=== PATIENT | female | born 1940 | race Caucasian/White ===

== ENCOUNTER → 2017-07-09 | Outpatient (CLI) | payer MEDICARE | END | disposition home or self-care (01) | LOC: GMAJ 16:41 | PROVIDERS: ATTEND Family Medicine | DX: N30.00 Acute cystitis without hematuria (principal) ==

== ENCOUNTER → 2017-08-22 | Outpatient (CLI) | payer MEDICARE | LOC: GMAJ 14:34 | PROVIDERS: ATTEND Family Medicine | DX: N30.00 Acute cystitis without hematuria (principal); E11.9 Type 2 diabetes mellitus without complications; E78.00 Pure hypercholesterolemia, unspecified; I10 Essential (primary) hypertension ==

== ENCOUNTER → 2017-09-05 | Outpatient (CLI) | payer MEDICARE | LOC: GMA 14:08 | PROVIDERS: ATTEND Physician Assistant | DX: N30.00 Acute cystitis without hematuria (principal) ==

== ENCOUNTER → 2017-11-04 | Outpatient (CLI) | payer MEDICARE | LOC: GMAJS 11:15 | PROVIDERS: ATTEND Physician Assistant | DX: N30.00 Acute cystitis without hematuria (principal) ==

== ENCOUNTER → 2018-02-20 | Outpatient (CLI) | payer MEDICARE | LOC: GMAJ 10:43 | PROVIDERS: ATTEND Family Medicine | DX: N30.00 Acute cystitis without hematuria (principal) ==

== ENCOUNTER 2018-05-19 21:13 | Emergency (ER) | payer MEDICARE ==
--- NOTE | 2018-05-19 22:08 | ED.PDOC ---
History of Present Illness - General Chief Complaint: Fever Stated Complaint: fever, generalized weakness, SOB Time Seen by Provider: 05/19/18 21:47 Source: patient, family Exam Limitations: no limitations - History of Present Illness Initial Comments: Patient presents with a fever since this morning. She has not eaten all day. She started having loose bowel movements last night and has had them all day today. No hematochezia. Denies abdominal pain/ST/N/V. She is not sure what surgeries that she has had. Has a mild dry cough. No other complaints. Timing/Duration: 24 hours Severity: moderate Improving Factors: nothing Worsening Factors: nothing Associated Symptoms: other - see hpi Allergies/Adverse Reactions: Allergies Metformin Adverse Reaction (Verified 06/22/16 11:57) Diarrhea Home Medications: Ambulatory Orders Aspirin [Aspirin Adult Low Dose] 81 mg PO BEDTIME 05/15/16 Atorvastatin Calcium [Lipitor] 40 mg PO BEDTIME 05/15/16 Carvedilol 6.25 mg PO BID 05/15/16 Gabapentin 300 mg PO BID 05/15/16 Insulin Detemir [Levemir] 13 units SUBCU BEDTIME 05/15/16 Multiple Vitamins W/ Minerals [Renaplex-D] 1 tab PO DAILY 05/15/16 Sucroferric Oxyhydroxide [Velphoro] 250 mg PO .TIDAC 05/15/16 amLODIPine BESYLATE [Norvasc] 5 mg PO DAILY 05/15/16 Cefdinir [Omnicef] 300 mg PO DAILY #6 cap 05/20/18 Review of Systems - Review of Systems Constitutional: States: fever EENTM: States: no symptoms reported Respiratory: States: see HPI Cardiology: States: no symptoms reported Gastrointestinal/Abdominal: States: see HPI Genitourinary: States: no symptoms reported Musculoskeletal: States: no symptoms reported Skin: States: no symptoms reported Neurological: States: no symptoms reported Endocrine: States: no symptoms reported Hematologic/Lymphatic: States: no symptoms reported Past Medical History (General) - Patient Medical History Hx Seizures: No Hx Stroke: No Hx Dementia: No Hx Asthma: No Hx of COPD: No Hx Cardiac Disorders: Yes - [place] Hx Congestive Heart Failure: No Hx Pacemaker: No Hx Hypertension: Yes Hx Thyroid Disease: Yes - partial thyroidectomy Hx Diabetes: Yes Hx Gastroesophageal Reflux: No Hx Renal Disease: Yes - Dialysis Hx Cancer: No Hx of HIV: No Hx Hepatitis C: No Hx MRSA: No - Vaccination History Hx Influenza Vaccination: Yes - 2015 Hx Pneumococcal Vaccination: Yes - 2015 - Social History Hx Tobacco Use: Yes - Quit 1966 Family Medical History - Family History Mother Family History: Unknown Living Status: Unknown Hx Family;Other: COPD Physical Exam - Physical Exam General Appearance: Alert Eye Exam: bilateral normal Ears, Nose, Throat: normal ENT inspection, normal pharynx Neck: non-tender, supple Respiratory: lungs clear, normal breath sounds Cardiovascular/Chest: normal peripheral pulses, regular rate, rhythm, no edema Gastrointestinal/Abdominal: normal bowel sounds, non tender, soft Back Exam: normal inspection, no CVA tenderness Extremity: normal range of motion, non-tender, normal inspection 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, no motor/sensory deficits, alert, normal mood/affect, oriented x 3 Skin Exam: normal color Lymphatic: no adenopathy Progress - Progress Progress: 05/20/18 00:42 Laboratory Tests 05/19/18 05/19/18 05/19/18 21:31 22:10 22:20 WBC 10.2 RBC 3.31 L Hgb 10.6 L Hct 32.7 L MCV 98.9 MCH 32.0 H MCHC 32.5 L RDW 16.7 H Plt Count 136 MPV 8.2 Absolute Neuts (auto) 8.90 H Absolute Lymphs (auto) 0.60 L Absolute Monos (auto) 0.60 Absolute Eos (auto) 0.00 Absolute Basos (auto) 0.10 Neutrophils % 87.1 H Lymphocytes % 5.9 L Monocytes % 5.5 Eosinophils % 0.3 L Basophils % 1.2 Sodium Potassium Chloride Carbon Dioxide Anion Gap BUN Creatinine BUN/Creatinine Ratio POC Glucose 149 H Random Glucose Serum Osmolality Calcium Total Bilirubin AST ALT Alkaline Phosphatase Serum Total Protein Albumin Globulin Albumin/Globulin Ratio Urine Color Urine Appearance Urine pH Ur Specific [place]ow Urine Protein Urine Glucose (UA) Urine Ketones Urine Blood Urine Nitrite Urine Bilirubin Urine Urobilinogen Ur Leukocyte Esterase Urine RBC Urine WBC Ur Epithelial Cells Urine Bacteria Group A Strep Rapid Negative 05/19/18 05/19/18 22:20 23:44 WBC RBC Hgb Hct MCV MCH MCHC RDW Plt Count MPV Absolute Neuts (auto) Absolute Lymphs (auto) Absolute Monos (auto) Absolute Eos (auto) Absolute Basos (auto) Neutrophils % Lymphocytes % Monocytes % Eosinophils % Basophils % Sodium 139 Potassium 4.9 Chloride 105 Carbon Dioxide 24 Anion Gap 14.9 BUN 73 H Creatinine 6.88 H* BUN/Creatinine Ratio 10.6 POC Glucose Random Glucose 156 H Serum Osmolality 302.3 H Calcium 9.3 Total Bilirubin 0.6 AST 25 ALT 17 Alkaline Phosphatase 54 Serum Total Protein 7.2 Albumin 3.6 Globulin 3.6 H Albumin/Globulin Ratio 1.0 L Urine Color Yellow Urine Appearance Clear Urine pH 8.5 H Ur Specific [place]ow 1.020 Urine Protein 100 H Urine Glucose (UA) Negative Urine Ketones Negative Urine Blood Trace-intact H Urine Nitrite Negative Urine Bilirubin Negative Urine Urobilinogen 0.2 Ur Leukocyte Esterase Small H Urine RBC 5-10 H Urine WBC 10-20 H Ur Epithelial Cells 5-10 Urine Bacteria 1+ Group A Strep Rapid Mild UTI. CT abdomen/pelvis did not show a convincing etiology of the fever or diarrhea. It is likely that the patient has infections diarrhea with an incidental mild UTI. Given Rocephin 1 gram IV x one in the E.D. and RX for Omnicef 300 mg po q24 to be taken after dialysis for a total of 7 days. 05/20/18 00:43 E.R. warnings given. Care instructions given. Questions were elicited and answered. The patient voiced understanding and agreement with the plan. Departure - Departure Clinical Impression: Diarrhea, Urinary tract infection Disposition: Discharge to Home or Self Care Condition: Good Departure Forms: ED Discharge - Pt. Copy, Patient Portal Self Enrollment Instructions: DI for Fever (Symptom) -- Adult Diet: resume usual diet, other - Increase oral fluids while having the diarrhea. Activity: increase activity as tolerated Referrals: Pedro Luis Fatima MD [Primary Care Provider] - 1-2 Weeks Prescriptions: Cefdinir [Omnicef] 300 mg PO DAILY #6 cap Home Medications: Ambulatory Orders Aspirin [Aspirin Adult Low Dose] 81 mg PO BEDTIME 05/15/16 Atorvastatin Calcium [Lipitor] 40 mg PO BEDTIME 05/15/16 Carvedilol 6.25 mg PO BID 05/15/16 Gabapentin 300 mg PO BID 05/15/16 Insulin Detemir [Levemir] 13 units SUBCU BEDTIME 05/15/16 Multiple Vitamins W/ Minerals [Renaplex-D] 1 tab PO DAILY 05/15/16 Sucroferric Oxyhydroxide [Velphoro] 250 mg PO .TIDAC 05/15/16 amLODIPine BESYLATE [Norvasc] 5 mg PO DAILY 05/15/16 Cefdinir [Omnicef] 300 mg PO DAILY #6 cap 05/20/18 Additional Instructions: Increase your oral intake of fluids while you are having diarrhea. You may start using Immodium AD as directed on the bottle if you still have diarrhea on Saturday. See your regular doctor if the diarrhea does not clear up in 5 days.
--- NOTE | 2018-05-19 22:37 | RAD ---
EXAM DESCRIPTION: Chest,1 View CLINICAL HISTORY: 78 years Female fever COMPARISON: 05/13/2016 FINDINGS: Cardiac enlargement. Prominent pulmonary arteries. Interstitial markings are prominent which may reflect developing interstitial edema. No lobar consolidation. No pneumothorax. No definite pleural fluid IMPRESSION: Cardiac enlargement prominent main pulmonary artery which is unchanged Interstitial infiltrate. Question fibrosis versus developing edema Electronically signed by: Cynthia Lopes MD 05/19/2018 10:36 PM [employer]
[2018-05-19] MEDS: ACETAMINOPHEN 325 MG TAB PO ONE (23:05)
--- NOTE | 2018-05-19 23:26 | CT ---
NONCONTRAST ABDOMEN AND PELVIC CT EXAMINATION. HISTORY: Fever and diarrhea. COMPARISONS: No comparison abdomen and pelvic CT examinations are available. PROCEDURE: Using helical technique, thin section axial images were performed through the abdomen and pelvis without the administration of intravenous or oral contrast material. FINDINGS: Both kidneys appear small with probable renal cortical thinning. Renal vascular calcifications. Fatty inflammation adjacent to the fluid-filled urinary bladder suspicious for sequela of bladder infection. The adrenal glands, kidneys, renal collecting systems, ureters and urinary bladder are otherwise grossly normal on this noncontrast examination. Mild to moderate sigmoid diverticulosis. No evidence of appendicitis, diverticulitis, inflammatory bowel disease, bowel obstruction, extraluminal bowel gas or retroperitoneal hemorrhage. No ascites, free pelvic fluid or evidence of intra-abdominal abscess on this noncontrast examination. The fluid-filled gallbladder is grossly normal. Metallic artifact in the right upper abdominal quadrant possibly representing a localization coils in the hepatic artery. The liver, spleen, pancreas, stomach and duodenum are otherwise grossly normal on this noncontrast examination. Moderate to severe atherosclerotic calcification in the abdominal aorta and iliac arteries with greatest AP diameter of the infrarenal abdominal aorta measuring 2.1 cm. Sequela of remote hysterectomy. Bones appear normal for age. IMPRESSION: 1. Fatty inflammation adjacent to the fluid-filled urinary bladder suspicious for sequela of bladder infection. 2. Mild to moderate sigmoid colon diverticulosis without evidence of diverticulitis. 3. Ectasia of the infrarenal abdominal aorta with greatest AP diameter equaling 2.1 cm. No imaging follow-up recommended. If clinical concern persists, post intravenous contrast and post oral contrast abdomen and pelvic CT examination should be performed for further evaluation. This exam was performed according to our departmental dose-optimization program, which includes automated exposure control, adjustment of the mA and/or kV according to patient size and/or use of iterative reconstruction technique. Electronically signed by: Tim Hough MD 05/19/2018 11:25 PM COUNTER CONTROL OPERATOR
[2018-05-19] MEDS: SODIUM CHLORIDE 0.9% 1000ML 1,000 ML IVS ONE (23:55)
[2018-05-20] MEDS ORDERED: cefTRIAXone SODIUM 1 GM VIAL ONE (00:34)
[2018-05-20] MEDS ORDERED: SODIUM CHL 0.9% 50ML MIN-BAG+ 50 ML IVPB ONE (00:34)
[2018-05-20] MEDS: cefTRIAXone SODIUM 1 GM in SODIUM CHL 0.9% 50ML MIN-BAG+ 50 ML IVPB ONE (00:37)
[2018-05-20 01:28] VITALS: BP 163/71; TEMP 99.4; O2SAT 96
== END 2018-05-20 01:29 | disposition home or self-care (01) ==
LOC: ER 21:13
DX: N39.0 Urinary tract infection, site not specified (principal); R19.7 Diarrhea, unspecified; R05 Cough; I25.2 Old myocardial infarction; I12.0 Hypertensive chronic kidney disease with stage 5 chronic kidney disease or end stage renal disease; E11.22 Type 2 diabetes mellitus with diabetic chronic kidney disease; N18.6 End stage renal disease; E89.0 Postprocedural hypothyroidism; Z99.2 Dependence on renal dialysis; Z87.891 Personal history of nicotine dependence; Z79.82 Long term (current) use of aspirin; Z79.4 Long term (current) use of insulin; Z79.899 Other long term (current) drug therapy; Z88.8 Allergy status to other drugs, medicaments and biological substances
CPT/HCPCS: 36416; 71045; 74176; 80053; 81001; 82948; 85025; 87070; 87086; 87502; 87880; J0696; J7030; J7050

== ENCOUNTER → 2018-05-23 | Outpatient (CLI) | payer MEDICARE | LOC: YCHH 09:16 | PROVIDERS: ATTEND Family Medicine | DX: N18.9 Chronic kidney disease, unspecified (principal); E11.9 Type 2 diabetes mellitus without complications; D64.9 Anemia, unspecified; E78.5 Hyperlipidemia, unspecified ==

== ENCOUNTER 2018-05-28 07:46 | Emergency (ER) | payer MEDICARE ==
[2018-05-28 07:57] VITALS: TEMP 97.6
--- NOTE | 2018-05-28 08:04 | ED.PDOC ---
History of Present Illness - General Chief Complaint: General Stated Complaint: shortness of breath Time Seen by Provider: 05/28/18 08:00 Source: patient - History of Present Illness Timing/Duration: other - 3 DAYS Improving Factors: nothing Worsening Factors: movement, other - EXCERTION Associated Symptoms: malaise, shortness of breath Allergies/Adverse Reactions: Allergies Metformin Adverse Reaction (Verified 06/22/16 11:57) Diarrhea Home Medications: Ambulatory Orders Gabapentin 300 mg PO DAILY 05/15/16 Multiple Vitamins W/ Minerals [Renaplex-D] 1 tab PO DAILY 05/15/16 Sucroferric Oxyhydroxide [Velphoro] 250 mg PO .TIDAC 05/15/16 amLODIPine BESYLATE [Norvasc] 5 mg PO DAILY 05/15/16 Gabapentin 600 mg PO BEDTIME 05/28/18 Insulin Aspart [Novolog Flexpen] 100 unit SC .BEDTIMESLIDINGSCALE 05/28/18 Metoprolol Succinate [Metoprolol Succinate ER] 25 mg PO DAILY 05/28/18 Review of Systems - Review of Systems Constitutional: States: no symptoms reported EENTM: States: no symptoms reported Respiratory: States: short of breath Cardiology: States: no symptoms reported Gastrointestinal/Abdominal: States: no symptoms reported Genitourinary: States: no symptoms reported Musculoskeletal: States: no symptoms reported Skin: States: no symptoms reported Neurological: States: no symptoms reported Endocrine: States: no symptoms reported Hematologic/Lymphatic: States: no symptoms reported Past Medical History (General) - Patient Medical History Hx Seizures: No Hx Stroke: No Hx Dementia: No Hx Asthma: No Hx of COPD: No Hx Cardiac Disorders: Yes - [place] Hx Congestive Heart Failure: No Hx Pacemaker: No Hx Hypertension: Yes Hx Thyroid Disease: Yes - partial thyroidectomy Hx Diabetes: Yes Hx Gastroesophageal Reflux: No Hx Renal Disease: Yes - Dialysis Hx Cancer: No Hx of HIV: No Hx Hepatitis C: No Hx MRSA: No Surgical History: cholecystectomy - Vaccination History Hx Influenza Vaccination: Yes Hx Pneumococcal Vaccination: Yes - 2015 - Social History Hx Tobacco Use: No - Female History Patient is a Female of Child Bearing Age (10 -59 yrs old): Yes Family Medical History - Family History Mother Family History: Unknown Living Status: Unknown Hx Family;Other: COPD Physical Exam - Physical Exam General Appearance: No apparent distress, Well Developed, Well Groomed, Well Hydrated Ears, Nose, Throat: hearing grossly normal, normal ENT inspection, normal pharynx Neck: non-tender, full range of motion, supple Respiratory: chest non-tender, crackles Cardiovascular/Chest: normal peripheral pulses, regular rate, rhythm Gastrointestinal/Abdominal: normal bowel sounds, non tender, no organomegaly, no pulsatile mass Back Exam: normal inspection Extremity: normal range of motion, non-tender, normal inspection, no pedal edema Skin Exam: normal color Lymphatic: no adenopathy Progress - Progress Progress: 05/28/18 09:[address] GROSS-TO DIALYSIS - Results/Orders Results/Orders: cxr: PULMONARY EDEMA 05/28/18 08:49 UA [URINALYSIS] Stat Laboratory Results WBC 7.2 K/mm3 (4.8-10.8) 05/28/18 08:11 RBC 3.41 M/mm3 (4.20-5.40) L 05/28/18 08:11 Hgb 10.9 gm/dL (12.0-16.0) L 05/28/18 08:11 Hct 33.8 % (36.0-47.0) L 05/28/18 08:11 MCV 99.1 fl (81.0-99.0) H 05/28/18 08:11 MCH 31.9 pg (27.0-31.0) H 05/28/18 08:11 MCHC 32.2 g/dL (33.0-37.0) L 05/28/18 08:11 RDW 17.0 % (11.5-14.5) H 05/28/18 08:11 Plt Count 150 K/mm3 (130-400) 05/28/18 08:11 MPV 8.0 fl (7.40-10.4) 05/28/18 08:11 Absolute Neuts (auto) 5.20 K/uL (1.8-6.8) 05/28/18 08:11 Absolute Lymphs (auto) 1.20 K/uL (1.0-3.4) 05/28/18 08:11 Absolute Monos (auto) 0.50 K/uL (0.2-0.8) 05/28/18 08:11 Absolute Eos (auto) 0.20 K/uL (0.0-0.4) 05/28/18 08:11 Absolute Basos (auto) 0.10 K/uL (0.0-0.1) 05/28/18 08:11 Neutrophils % 71.8 % (42.0-78.0) 05/28/18 08:11 Lymphocytes % 17.1 % (20.0-50.0) L 05/28/18 08:11 Monocytes % 7.4 % (2.0-9.0) 05/28/18 08:11 Eosinophils % 3.0 % (1.0-5.0) 05/28/18 08:11 Basophils % 0.7 % (0.0-2.0) 05/28/18 08:11 Sodium 137 mmol/L (135-145) 05/28/18 08:11 Potassium 4.5 mmol/L (3.6-5.0) 05/28/18 08:11 Chloride 98 mmol/L (101-111) L 05/28/18 08:11 Carbon Dioxide 27 mmol/L (21-31) 05/28/18 08:11 Anion Gap 16.5 (12-18) 05/28/18 08:11 BUN 57 mg/dL (7-18) H 05/28/18 08:11 Creatinine 4.97 mg/dL (0.6-1.3) H 05/28/18 08:11 BUN/Creatinine Ratio 11.5 (10-20) 05/28/18 08:11 Random Glucose 116 mg/dL (70-105) H 05/28/18 08:11 Serum Osmolality 290.6 mOsm/L (275-295) 05/28/18 08:11 Calcium 9.2 mg/dL (8.4-10.2) 05/28/18 08:11 Total Bilirubin 0.7 mg/dL (0.2-1.0) 05/28/18 08:11 AST 21 IU/L (10-42) 05/28/18 08:11 ALT 19 IU/L (10-60) 05/28/18 08:11 Alkaline Phosphatase 52 IU/L (42-121) 05/28/18 08:11 Serum Total Protein 7.1 gm/dL (6.4-8.2) 05/28/18 08:11 Albumin 3.4 g/dl (3.2-5.5) 05/28/18 08:11 Globulin 3.7 gm/dL (2.3-3.5) H 05/28/18 08:11 Albumin/Globulin Ratio 0.9 (1.1-1.9) L 05/28/18 08:11 Departure - Departure Clinical Impression: End stage renal disease on dialysis Congestive heart failure (CHF) Qualifiers: Heart failure type: diastolic Heart failure chronicity: acute on chronic Qualified Code(s): I50.33 - Acute on chronic diastolic (congestive) heart failure Time of Disposition: :16 Disposition: Discharge to Home or Self Care Condition: Fair Departure Forms: ED Discharge - Pt. Copy, Patient Portal Self Enrollment Diet: resume usual diet Activity: increase activity as tolerated Referrals: Pedro Luis Fatima MD [Primary Care Provider] - 1-2 Weeks Home Medications: Ambulatory Orders Gabapentin 300 mg PO DAILY 05/15/16 Multiple Vitamins W/ Minerals [Renaplex-D] 1 tab PO DAILY 05/15/16 Sucroferric Oxyhydroxide [Velphoro] 250 mg PO .TIDAC 05/15/16 amLODIPine BESYLATE [Norvasc] 5 mg PO DAILY 05/15/16 Gabapentin 600 mg PO BEDTIME 05/28/18 Insulin Aspart [Novolog Flexpen] 100 unit SC .BEDTIMESLIDINGSCALE 05/28/18 Metoprolol Succinate [Metoprolol Succinate ER] 25 mg PO DAILY 05/28/18 Comments: TO DIALYSIS
--- NOTE | 2018-05-28 08:18 | RAD ---
EXAM DESCRIPTION: Chest,1 View CLINICAL HISTORY: 78 years Female, SOB COMPARISON: Chest radiograph 05/19/2018 TECHNIQUE: Single frontal view of the chest. IMPRESSION: Cardiac silhouette is stably enlarged. Worsening pulmonary edema versus multifocal pneumonia. New moderate bilateral pleural effusions. No pneumothorax. Thoracic spondylosis. Bones are diffusely demineralized. Consider DEXA scan to assess for fracture risk is not performed. Electronically signed by: Kleber Garg MD 05/28/2018 8:17 AM [facility]
[2018-05-28] MEDS ORDERED: FUROSEMIDE INJ 40 MG/4 ML VIAL IV ONE (08:46)
[2018-05-28 09:39] VITALS: BP 187/83; O2SAT 93
== END 2018-05-28 09:41 | disposition home or self-care (01) ==
LOC: ER 07:46
DX: I50.33 Acute on chronic diastolic (congestive) heart failure (principal); N18.6 End stage renal disease; I25.2 Old myocardial infarction; I13.2 Hypertensive heart and chronic kidney disease with heart failure and with stage 5 chronic kidney disease, or end stage renal disease; E11.22 Type 2 diabetes mellitus with diabetic chronic kidney disease; E89.0 Postprocedural hypothyroidism; Z99.2 Dependence on renal dialysis; Z79.4 Long term (current) use of insulin; Z79.899 Other long term (current) drug therapy; Z88.8 Allergy status to other drugs, medicaments and biological substances
CPT/HCPCS: 36415; 71045; 80053; 81001; 85025; J1940

== ENCOUNTER 2018-06-03 17:52 | Emergency (ER) | payer MEDICARE ==
[2018-06-03] MEDS ORDERED: SODIUM CHLORIDE 0.9% (FLUSH) 10 ML SYG IV PRN (18:21)
--- NOTE | 2018-06-03 18:59 | ED.PDOC ---
History of Present Illness - General Source: patient, family Exam Limitations: clinical condition - History of Present Illness Initial Comments: PT PRESENTS TO THE ED WITH AMS, FEVER, AND GENERALIZED WEAKNESS THAT BEGAN JUST PRIOR TO ARRIVAL TODAY. PT WAS IN HER NORMAL STATE OF HEALTH UNTIL SHE BEGAN TO HAVE FEVER, CHILLS, AND CONFUSION. PT WAS RECENTLY TREATED FOR A UTI WHICH HAD RESOLVED. PT WAS SEEN BY HER PCP EARLIER TODAY AND WAS ASYMPTOMATIC AT THE TIME. ROS AND HPI LIMITED DUE TO PTS MENTAL STATUS. Timing/Duration: 1-3 hours Severity: moderate Associated Symptoms: weakness <Grey Farris - Last Filed: 06/03/18 18:57> <Patric Zaman - Last Filed: 06/03/18 19:48> - General Chief Complaint: Fever Stated Complaint: FEVER Time Seen by Provider: 06/03/18 18:11 - History of Present Illness Allergies/Adverse Reactions: Allergies Metformin Adverse Reaction (Verified 06/22/16 11:57) Diarrhea Home Medications: Ambulatory Orders Gabapentin 300 mg PO DAILY 05/15/16 Multiple Vitamins W/ Minerals [Renaplex-D] 1 tab PO DAILY 05/15/16 Sucroferric Oxyhydroxide [Velphoro] 250 mg PO .TIDAC 05/15/16 amLODIPine BESYLATE [Norvasc] 5 mg PO DAILY 05/15/16 Gabapentin 600 mg PO BEDTIME 05/28/18 Insulin Aspart [Novolog Flexpen] 100 unit SC .BEDTIMESLIDINGSCALE 05/28/18 Metoprolol Succinate [Metoprolol Succinate ER] 25 mg PO DAILY 05/28/18 Review of Systems - Review of Systems Constitutional: States: chills, fever EENTM: Denies: nose congestion, throat pain Respiratory: States: short of breath. Denies: cough Cardiology: Denies: chest pain, palpitations Gastrointestinal/Abdominal: Denies: nausea, vomiting Genitourinary: Denies: dysuria, frequency Musculoskeletal: Denies: back pain, joint pain Skin: States: see HPI Neurological: States: see HPI <Grey Farris - Last Filed: 06/03/18 18:57> Past Medical History (General) - Patient Medical History Hx Seizures: No Hx Stroke: No Hx Dementia: No Hx Asthma: No Hx of COPD: No Hx Cardiac Disorders: Yes - [place] Hx Congestive Heart Failure: No Hx Pacemaker: No Hx Hypertension: Yes Hx Thyroid Disease: Yes - partial thyroidectomy Hx Diabetes: Yes Hx Gastroesophageal Reflux: No Hx Renal Disease: Yes - Dialysis Hx Cancer: No Hx of HIV: No Hx Hepatitis C: No Hx MRSA: No - Vaccination History Hx Influenza Vaccination: Yes Hx Pneumococcal Vaccination: Yes - 2016 - Social History Hx Tobacco Use: No <Grey Farris - Last Filed: 06/03/18 18:57> Family Medical History - Family History Mother Family History: Unknown Living Status: Unknown Hx Family;Other: COPD <WalkerGrey - Last Filed: 06/03/18 18:57> Physical Exam - Physical Exam General Appearance: Alert, Frail, Ill Appearing, Well Groomed, Well Hydrated, Other - CONFUSED, WEAK Eye Exam: bilateral normal Ears, Nose, Throat: hearing grossly normal Neck: normal inspection Respiratory: lungs clear, normal breath sounds, no respiratory distress Cardiovascular/Chest: regular rate, rhythm, no murmur Gastrointestinal/Abdominal: non tender, soft Extremity: non-tender, no pedal edema Neurologic: alert, other - CONFUSED AT TIMES Skin Exam: warm/dry, pallor <Grey Farris - Last Filed: 06/03/18 18:57> Progress - Progress Progress: 06/03/18 19:38 ASSUMED CARE OF PT. HAVE REVIEWED CHART, LAB, RADIOLOGY, SEEN AND EXAMINED PT. AGREE WITH PREVIOUS DOCUMENTATION. LL RALES, SKIN HOT AND DRY. - EKG/XRAY/CT EKG: Sinus - RATE 90 AXIS NL, , nonspecific ST T wave Chg - NAIP, Unchanged from - 05/15/16 <Patric Zaman - Last Filed: 06/03/18 19:48> Departure <Grey Farris - Last Filed: 06/03/18 18:57> - Departure ICD-10 Supporting Text: PARTIALLY TREATED UTI Time of Disposition: 19:48 <Patric Zaman - Last Filed: 06/03/18 19:48> - Departure Clinical Impression: Pneumonia Qualifiers: Pneumonia type: due to unspecified organism Laterality: left Lung location: lower lobe of lung Qualified Code(s): J18.1 - Lobar pneumonia, unspecified organism UTI (urinary tract infection) Qualifiers: Urinary tract infection type: site unspecified Hematuria presence: without hematuria Qualified Code(s): N39.0 - Urinary tract infection, site not specified Chronic kidney disease (CKD) Qualifiers: Chronic kidney disease stage: on chronic dialysis Qualified Code(s): N18.6 - End stage renal disease; Z99.2 - Dependence on renal dialysis; Z99.2 - Dependence on renal dialysis; Z99.2 - Dependence on renal dialysis; Z99.2 - Dependence on renal dialysis Disposition: Transfer to Hospital Departure Forms: ED Discharge - Pt. Copy, Patient Portal Self Enrollment Referrals: Pedro Luis Fatima MD [Primary Care Provider] - 1-2 Weeks Home Medications: Ambulatory Orders Gabapentin 300 mg PO DAILY 05/15/16 Multiple Vitamins W/ Minerals [Renaplex-D] 1 tab PO DAILY 05/15/16 Sucroferric Oxyhydroxide [Velphoro] 250 mg PO .TIDAC 05/15/16 amLODIPine BESYLATE [Norvasc] 5 mg PO DAILY 05/15/16 Gabapentin 600 mg PO BEDTIME 05/28/18 Insulin Aspart [Novolog Flexpen] 100 unit SC .BEDTIMESLIDINGSCALE 05/28/18 Metoprolol Succinate [Metoprolol Succinate ER] 25 mg PO DAILY 05/28/18 Transfer to Outside Facility - Transfer Information Accepting Provider:: D/W DR TOMPKINS WILL ACCEPT PT IN TRANSFER 1942 Accepting Facility: [facility] Reason for Transfer: specialized care not available <Patric Zaman - Last Filed: 06/03/18 19:48>
--- NOTE | 2018-06-03 19:00 | RAD ---
EXAM DESCRIPTION: Chest,1 View CLINICAL HISTORY: 78 years Female FEVER COMPARISON: 05/28/2018. FINDINGS: There is cardiomegaly again visualized. Atherosclerotic changes in the thoracic aorta. There is opacity at the left lung base suggesting a left pleural effusion with associated atelectasis or infiltrate. The changes from vascular congestion and interstitial edema visualized on the previous study appear improved. IMPRESSION: Cardiomegaly with improvement in pulmonary vascular congestion and interstitial edema compared to the previous study. Left pleural effusion with opacity at the left lung base which could be from atelectasis or pneumonia. Electronically signed by: Naman Lopes MD 06/03/2018 6:58 PM AIRCRAFT TIME CLERK
[2018-06-03] MEDS ORDERED: AZITHROMYCIN IV 500 MG in SODIUM CHLORIDE 0.9% 250ML 250 ML IVPB ONE (19:04)
[2018-06-03] MEDS ORDERED: ACETAMINOPHEN 500 MG TAB PO ONE (19:04)
[2018-06-03] MEDS ORDERED: cefTRIAXone SODIUM 1 GM in SODIUM CHL 0.9% 50ML MIN-BAG+ 50 ML IVPB ONE (19:04)
[2018-06-03] MEDS ORDERED: AZITHROMYCIN IV 500 MG VIAL IVPB ONE (19:08)
[2018-06-03] MEDS ORDERED: SODIUM CHL 0.9% 50ML MIN-BAG+ 50 ML IVPB ONE (19:09)
[2018-06-03] MEDS ORDERED: SODIUM CHLORIDE 0.9% 250ML 250 ML ONE (19:09)
[2018-06-03] MEDS ORDERED: cefTRIAXone SODIUM 1 GM VIAL ONE (19:09)
[2018-06-03 20:27] VITALS: BP 132/56; TEMP 101.7; O2SAT 97
== END 2018-06-03 20:40 | disposition short-term general hospital (02) ==
LOC: ER 17:52
DX: J18.9 Pneumonia, unspecified organism (principal); N39.0 Urinary tract infection, site not specified; N18.6 End stage renal disease; R41.82 Altered mental status, unspecified; E11.22 Type 2 diabetes mellitus with diabetic chronic kidney disease; I12.0 Hypertensive chronic kidney disease with stage 5 chronic kidney disease or end stage renal disease; I25.2 Old myocardial infarction; E89.0 Postprocedural hypothyroidism; Z99.2 Dependence on renal dialysis; Z79.4 Long term (current) use of insulin; Z79.899 Other long term (current) drug therapy; Z88.8 Allergy status to other drugs, medicaments and biological substances
CPT/HCPCS: 36415; 71045; 80053; 82550; 82553; 83605; 84484; 85025; 85610; 85730; 87040; 93005; J0456; J0696; J7050

== ENCOUNTER 2018-07-01 14:06 | Emergency (ER) | payer MEDICARE ==
[2018-07-01] MEDS ORDERED: SODIUM CHLORIDE 0.9% (FLUSH) 10 ML SYG IV PRN (14:39)
--- NOTE | 2018-07-01 14:45 | ED.PDOC ---
History of Present Illness - General Chief Complaint: Respiratory Problem Time Seen by Provider: 07/01/18 14:21 Source: patient, family Exam Limitations: no limitations - History of Present Illness Initial Comments: APPROX 1 MO AGO, DX'D WITH PNE AND UTI. WAS IN [facility] FOR 2 WKS FOR TX. THEN DC'D TO [facility] FOR RECOVERY. PT AND FAMILY STATE SHE HASN'T REGAINED HER STRENGTH AND STILL IS HAVING SOB. PT STATES SHE WAS AT P.T. TODAY, DEVELOPED SOB AND MILD CP IN L LOWER CHEST. C/O FATIGUE, SOB. PT'S BEEN ON 02 SINCE HOSPITALIZATION AND HN, BUT WASN'T ON 02 PRIOR. SATS IN ER TODAY 90% ON 2LNC. PMH: DM, CRF ON DIALYSIS X 7 YRS, CHF, H/O STROKE. HAD DIALYSIS YESTERDAY (M, W, F) Timing/Duration: constant, getting worse Severity: moderate Activities at Onset: activity Possible Cause: other - RECENT PNE Improving Factors: nothing Worsening Factors: movement Associated Symptoms: chest pain, cough, weakness Respiratory Risk Factors: other - RECENT PNE Allergies/Adverse Reactions: Allergies Metformin Adverse Reaction (Verified 06/22/16 11:57) Diarrhea Home Medications: Ambulatory Orders Gabapentin 300 mg PO DAILY 05/15/16 Multiple Vitamins W/ Minerals [Renaplex-D] 1 tab PO BEDTIME 05/15/16 Sucroferric Oxyhydroxide [Velphoro] 1,500 mg PO .TIDPC 05/15/16 amLODIPine BESYLATE [Norvasc] 5 mg PO DAILY 05/15/16 Gabapentin 600 mg PO BEDTIME 05/28/18 Metoprolol Succinate [Metoprolol Succinate ER] 100 mg PO BID 05/28/18 Ampicillin 500 mg PO QID 07/01/18 Apixaban [Eliquis] 5 mg PO BID 07/01/18 Atorvastatin Calcium 40 mg PO BEDTIME 07/01/18 Balsam [place] Oil [Venelex] 1 oin EX DAILY 07/01/18 Calcium Acetate (Phosphate Bin [Calcium Acetate] 2 tablet PO .TIDPC 07/01/18 Cholecalciferol [D 2000] 2,000 unit PO DAILY 07/01/18 Insulin Glargine [Lantus Solostar] 13 unit SC BEDTIME 07/01/18 Lvfrylwf-Bvaijzzmqu-Wrkobcjko [Neosporin] 1 applic TOP BID 07/01/18 Sucroferric Oxyhydroxide [Velphoro] 500 mg PO AC 07/01/18 Tramadol HCl [Ultram] 50 mg PO Q4HR PRN 07/01/18 Review of Systems - Review of Systems Constitutional: States: weakness. Denies: chills, fever EENTM: States: no symptoms reported Respiratory: States: cough, short of breath. Denies: orthopnea, stridor, wheezing Cardiology: States: chest pain. Denies: palpitations Gastrointestinal/Abdominal: States: no symptoms reported Genitourinary: States: no symptoms reported Musculoskeletal: States: no symptoms reported Skin: States: no symptoms reported Neurological: States: no symptoms reported Endocrine: States: no symptoms reported Hematologic/Lymphatic: States: no symptoms reported All other Systems: Reviewed and Negative Past Medical History (General) - Patient Medical History Hx Seizures: No Hx Stroke: No Hx Dementia: No Hx Asthma: No Hx of COPD: No Hx Cardiac Disorders: Yes - IN Hx Congestive Heart Failure: No Hx Pacemaker: No Hx Hypertension: Yes Hx Thyroid Disease: Yes - partial thyroidectomy Hx Diabetes: Yes Hx Gastroesophageal Reflux: No Hx Renal Disease: Yes - Dialysis Hx Cancer: No Hx of HIV: No Hx Hepatitis C: No Hx MRSA: No - Vaccination History Hx Influenza Vaccination: Yes Hx Pneumococcal Vaccination: Yes - 2016 - Social History Hx Tobacco Use: No Family Medical History - Family History Mother Family History: Unknown Living Status: Unknown Hx Family;Other: COPD Physical Exam - Physical Exam General Appearance: Alert, Well Nourished Eyes, Ears, Nose, Throat Exam: PERRL/EOMI, normal ENT inspection Neck: non-tender, supple Respiratory: chest non-tender, lungs clear, normal breath sounds, no respiratory distress, no accessory muscle use Cardiovascular/Chest: normal peripheral pulses, regular rate, rhythm, no murmur Peripheral Pulses: radial,right: 2+, radial,left: 2+ Gastrointestinal/Abdominal: normal bowel sounds, non tender, soft Rectal Exam: deferred Extremity: non-tender, pedal edema - CHRONIC, PER PT. 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 SHE STATES SHE STILL VOIDS SO WE ARE GIVING HER SOMETHING TO DRINK TO HELP HER URINATE. 07/01/18 17:40 86% ON RA. 02 90 - 93% ON 2L NC. CRF PER CXR, BNP, JVD, AND BLE EDEMA. PNE PER XCR HGB 7.7 (BASELINE 9 - 11). ELEV RDW. ANEMIA OF CHRONIC DZ. NA 131. BUN AND CR ELEV PER ARF DIALYSIS. BNP 2670 (BASELINE 1200 - 1500) CXR CARDIOMEGALY, ELEV L PLEURAL EFF AND PULM EDEMA, CHF VS POSSIBLE PNE. EKG, CARD ENZ, AND FLU NEG. COMPLEX DIALYSIS PT M, W, F WITH DR. GR[place] H/O CHF, IDDM, THUS TRANSFERRING TO [facility] FOR HIGHER LEVEL OF CARE. THANK YOU, DR. FINN AND [facility]. 07/01/18 17:46 - EKG/XRAY/CT EKG: Sinus, no ST T wave changes Departure - Departure Clinical Impression: Hypoxia, Cough, End stage renal failure on dialysis, Atypical chest pain, Hyponatremia, Elevated brain natriuretic peptide (BNP) level, Cardiomegaly, Pleural effusion, left, Jugular venous distension, Leg edema Pneumonia Qualifiers: Pneumonia type: due to unspecified organism Laterality: left Lung location: lower lobe of lung Qualified Code(s): J18.1 - Lobar pneumonia, unspecified organism CHF exacerbation Qualifiers: Heart failure type: unspecified Qualified Code(s): I50.9 - Heart failure, unspecified Dyspnea Qualifiers: Dyspnea type: shortness of breath Qualified Code(s): R06.02 - Shortness of breath; R06.00 - Dyspnea, unspecified; R06.01 - Orthopnea Fatigue Qualifiers: Fatigue type: unspecified Qualified Code(s): R53.83 - Other fatigue Anemia Qualifiers: Anemia type: due to chronic kidney disease Chronic kidney disease stage: on chronic dialysis Qualified Code(s): N18.6 - End stage renal disease; D63.1 - Anemia in chronic kidney disease; Z99.2 - Dependence on renal dialysis Pulmonary edema Qualifiers: Chronicity: acute Qualified Code(s): J81.0 - Acute pulmonary edema Disposition: Transfer to Hospital Condition: Poor Departure Forms: ED Discharge - Pt. Copy, Patient Portal Self Enrollment Referrals: Pedro Luis Fatima MD [Primary Care Provider] - 1-2 Weeks Home Medications: Ambulatory Orders Gabapentin 300 mg PO DAILY 05/15/16 Multiple Vitamins W/ Minerals [Renaplex-D] 1 tab PO BEDTIME 05/15/16 Sucroferric Oxyhydroxide [Velphoro] 1,500 mg PO .TIDPC 05/15/16 amLODIPine BESYLATE [Norvasc] 5 mg PO DAILY 05/15/16 Gabapentin 600 mg PO BEDTIME 05/28/18 Metoprolol Succinate [Metoprolol Succinate ER] 100 mg PO BID 05/28/18 Ampicillin 500 mg PO QID 07/01/18 Apixaban [Eliquis] 5 mg PO BID 07/01/18 Atorvastatin Calcium 40 mg PO BEDTIME 07/01/18 Balsam [place] Oil [Venelex] 1 oin EX DAILY 07/01/18 Calcium Acetate (Phosphate Bin [Calcium Acetate] 2 tablet PO .TIDPC 07/01/18 Cholecalciferol [D 2000] 2,000 unit PO DAILY 07/01/18 Insulin Glargine [Lantus Solostar] 13 unit SC BEDTIME 07/01/18 Hxpsgoto-Qbudgvpazh-Mxbwidmcn [Neosporin] 1 applic TOP BID 07/01/18 Sucroferric Oxyhydroxide [Velphoro] 500 mg PO AC 07/01/18 Tramadol HCl [Ultram] 50 mg PO Q4HR PRN 07/01/18 Transfer to Outside Facility - Transfer Information Accepting Provider:: DR. GLEN FINN Accepting Facility: [facility] Reason for Transfer: specialized care not available
--- NOTE | 2018-07-01 15:11 | RAD ---
Study: Single Frontal View of the Chest. Indication:SOB, RECENT PNEUMONIA. Comparison: June 03, 2018 Impression: Pronounced cardiomegaly. Moderate size left pleural effusion, slightly progressed compared to the prior. There is mild to moderate interstitial edema, slightly progressed. Underlying pneumonia not excluded. No pneumothorax. No acute osseous abnormality. Electronically signed by: Nirav Holden MD 07/01/2018 3:10 PM ONCOLOGY RESEARCH RN
[2018-07-01 17:47] VITALS: BP 129/60; TEMP 98.1; O2SAT 95
== END 2018-07-01 17:55 | disposition short-term general hospital (02) ==
LOC: ER 14:06
DX: J18.9 Pneumonia, unspecified organism (principal); I50.9 Heart failure, unspecified; D63.1 Anemia in chronic kidney disease; N18.6 End stage renal disease; J81.0 Acute pulmonary edema; R07.89 Other chest pain; R79.89 Other specified abnormal findings of blood chemistry; R09.02 Hypoxemia; E87.1 Hypo-osmolality and hyponatremia; E11.22 Type 2 diabetes mellitus with diabetic chronic kidney disease; I13.2 Hypertensive heart and chronic kidney disease with heart failure and with stage 5 chronic kidney disease, or end stage renal disease; I25.2 Old myocardial infarction; E89.0 Postprocedural hypothyroidism; Z79.4 Long term (current) use of insulin; Z99.2 Dependence on renal dialysis; Z79.899 Other long term (current) drug therapy; Z88.8 Allergy status to other drugs, medicaments and biological substances; Z86.73 Personal history of transient ischemic attack (TIA), and cerebral infarction without residual deficits

== ENCOUNTER → 2018-08-13 | Outpatient (CLI) | payer MEDICARE | LOC: GMAJ 21:06 | PROVIDERS: ATTEND Family Medicine | DX: N39.0 Urinary tract infection, site not specified (principal) ==

== ENCOUNTER 2018-09-19 10:31 | Emergency (ER) | payer MEDICARE ==
--- NOTE | 2018-09-19 11:47 | RAD ---
EXAM DESCRIPTION: Abdomen Series CLINICAL HISTORY: diarrhea, abd pain COMPARISON: Chest x-ray June 2018 FINDINGS: AP supine and upright views of the abdomen show a nonspecific, nonobstructive bowel gas pattern with no evidence for free intraperitoneal air. Vascular coils to the right of midline in the central abdomen are noted. No air-filled dilated loops of small bowel are seen. No significant air-fluid levels are identified. No obvious organomegaly is seen. No abnormal calcifications are seen in the expected location of the renal collecting systems. Single view of the chest shows enlargement of the cardiomediastinal silhouette without pulmonary vascular congestion. This is improved from previous. Lungs are normally aerated without acute appearing infiltrate or consolidation. No pleural effusion or pneumothorax is seen. IMPRESSION: Nonspecific abdominal series Decreased size of cardiomediastinal silhouette could represent resolution of pericardial effusion and/or previous congestive heart failure. Electronically signed by: Todd Adair MD 09/19/2018 11:43 AM CDT
[2018-09-19] MEDS: SUCRALFATE 1 GM/10 ML 1 GM UD PO ONE (11:59)
[2018-09-19] MEDS: PANTOPRAZOLE SODIUM TAB 40 MG PO ONE (11:59)
[2018-09-19] MEDS: ALUMINUM & MAGNESIUM HYDROXIDE 30 ML UD PO ONE (11:59)
--- NOTE | 2018-09-19 13:27 | CT ---
EXAM DESCRIPTION: Abdoment/Pelvis w/o Contrast: Computed Tomography. CLINICAL HISTORY: 78 years Female abd pain, mild gi bleed, hx diverticuli COMPARISON: CT abdomen and pelvis without contrast 05/19/2018. TECHNIQUE: Spiral-axial scans 2.5 x 2.5 mm intervals through the abdomen and pelvis without oral or IV contrast. Coronal and sagittal 2.0 mm reconstructions. Axial - 1.25 mm reconstructions.Total Exam DLP: 705.6 mGy-cm. This exam was performed according to our departmental CT dose-optimization program which includes automated exposure control, adjustment of the mA and/or kV according to patient size and/or use of iterative reconstruction technique; to reduce radiation dose to as low as reasonably achievable (ALARA). FINDINGS: Lung bases and pleura: Bilateral pleural-parenchymal scarring worse on the left. This has improved since the prior study with pleural thickening bilaterally but no effusion. Coronary artery stents and calcifications. Liver, stomach, spleen, and adrenal glands: Small gastric hiatal hernia. Solid organs are unremarkable. Pancreas, Gallbladder, and Ducts: Layering sludge in the gallbladder. No pericholecystic fluid. Fatty density in the pancreas with atrophy. Duct negative surgical clip with artifact between the first segment of the duodenum and the anterior head of the pancreas stable. Kidneys and Ureters: Kidneys are bilaterally small with cortical atrophy and bilateral atherosclerotic calcifications in the renal arteries and intrarenal arteries. No hydronephrosis or perinephric fluid. Symmetric bilateral pararenal stranding. Unchanged from the prior study. Mesentery: Minimal increased density in the pelvis along with fluid in the cul-de-sac. Aorta: Moderate atherosclerotic calcification. Transverse diameter 2.3 cm at L3. Also calcification of the proximal major branch vessels minimal enlargement of the bilateral proximal common iliac arteries. Small Bowel: Normal caliber with diffuse intraluminal gas. Terminal Ileum/Cecum: Unremarkable. Appendix not seen. Colon: Diverticula in the sigmoid colon. No soft tissue mass complication. Normal caliber. Pelvic Organs: Minimal fluid in the cul-de-sac upper left adnexa. Vaginal cuff unremarkable. No radiodense stones in the urinary bladder. Spine and Bony Pelvis: Large Schmorl's node inferior L4 vertebral body. Posterior L4-5 bulge. Significant bilateral foraminal narrowing. Calcification posterior L3-4 disc. Spondylosis lower thoracic spine. Minimal bilateral hip joint space narrowing.. Abdominal Wall/Back Soft Tissues: Small fatty left inguinal hernia not containing bowel. Ectasia of the umbilicus not containing bowel. IMPRESSION: 1. Minimal fluid in the upper cul-de-sac and left adnexa unchanged from the prior study. Diverticulosis of the distal colon with no complications also stable. 2. Layering sludge in the gallbladder. Atrophy and fatty infiltration of the pancreas. Stable surgical clip near the head of the pancreas. No infiltrative or inflammatory fatty changes or ascites. Small gastric hiatal hernia is stable. 3. Stable renal atrophy with multiple bilateral intrarenal atherosclerotic calcifications. No hydronephrosis. Large Schmorl's node in the inferior L4 vertebral body is stable with no compression. Stable left inguinal fatty hernia and stable diastases of the umbilicus. 4. Stable bulging L4-5 disc with significant foraminal narrowing. Stable bilateral hip joint space narrowing. Electronically signed by: Aki Sahni MD 09/19/2018 1:24 PM CDT
[2018-09-19 13:31] VITALS: O2SAT 98
--- NOTE | 2018-09-19 14:33 | ED.PDOC ---
History of Present Illness - General Chief Complaint: Abdominal Pain Stated Complaint: L abdominal discomfort Time Seen by Provider: 09/19/18 10:33 Source: patient Exam Limitations: no limitations - History of Present Illness Initial Comments: the patient is a 78-year-old female presenting to the emergency room after having had 2 small bloody bowel movements last night. The patient has been having some mild epigastric to left upper quadrant pain for the last couple of days. No palpitations. No shortness of breath. No diaphoresis. No syncope or near syncope. The patient takes multiple blood thinners in the form of aspirin, Plavix and Coumadin. She has had a history of a stroke. She is on dialysis. last bloody bowel movement was approximately 8 hours prior to arrival here.Blood in bowel movements were witnessed by home health nursing. Severity: mild Improving Factors: nothing Worsening Factors: nothing Associated Symptoms: denies symptoms Allergies/Adverse Reactions: Allergies Metformin Adverse Reaction (Verified 06/22/16 11:57) Diarrhea Home Medications: Ambulatory Orders Multiple Vitamins W/ Minerals [Renaplex-D] 1 tab PO BEDTIME 05/15/16 amLODIPine BESYLATE [Norvasc] 5 mg PO DAILY 05/15/16 Metoprolol Succinate [Metoprolol Succinate ER] 100 mg PO BID 05/28/18 Atorvastatin Calcium 40 mg PO BEDTIME 07/01/18 Insulin Glargine [Lantus Solostar] 13 unit SC BEDTIME 07/01/18 Albuterol Sulfate Nebs [Proventil Nebs] 2.5 mg INH PRN 09/19/18 Aspirin [Adult Aspirin Regimen] 81 mg PO DAILY 09/19/18 Clopidogrel Bisulfate [Plavix] 75 mg PO BEDTIME 09/19/18 Dexlansoprazole [Dexilant] 60 mg PO QPM #30 cap 09/19/18 Donepezil HCl [Aricept] 5 mg PO BEDTIME 09/19/18 Enoxaparin Sodium [Lovenox] 30 mg SUBCU DAILY 09/19/18 Escitalopram [Lexapro] 10 mg PO DAILY 09/19/18 Ibuprofen [Advil] 200 mg PO PRN 09/19/18 Ondansetron [Ondansetron Odt] 4 mg PO PRN 09/19/18 Ranitidine HCl [Ranitidine 75] 75 mg PO DAILY 09/19/18 Sucralfate Tab [Carafate Tab] 1 gm PO QID #120 tab 09/19/18 Warfarin Sodium 5 mg PO BID 09/19/18 diphenhydrAMINE HCL [Benadryl] 25 mg PO BEDTIME 09/19/18 Review of Systems - Review of Systems Constitutional: States: no symptoms reported EENTM: States: no symptoms reported Respiratory: States: no symptoms reported Cardiology: States: no symptoms reported Gastrointestinal/Abdominal: States: see HPI Genitourinary: States: no symptoms reported Musculoskeletal: States: no symptoms reported Skin: States: no symptoms reported Neurological: States: no symptoms reported Endocrine: States: no symptoms reported Hematologic/Lymphatic: States: no symptoms reported All other Systems: No Change from Baseline Past Medical History (General) - Patient Medical History Hx Seizures: No Hx Stroke: Yes Hx Dementia: No Hx Asthma: No Hx of COPD: No Hx Cardiac Disorders: Yes - SD Hx Congestive Heart Failure: Yes Hx Pacemaker: No Hx Hypertension: Yes Hx Thyroid Disease: Yes - partial thyroidectomy Hx Diabetes: Yes Hx Gastroesophageal Reflux: No Hx Renal Disease: Yes - ESRD - dialysis MWF Hx Cancer: No Hx of HIV: No Hx Hepatitis C: No Hx MRSA: No Surgical History: Hysterectomy, other - Vaccination History Hx Tetanus, Diphtheria Vaccination: Yes Hx Influenza Vaccination: Yes - 2018 Hx Pneumococcal Vaccination: Yes - Social History Hx Tobacco Use: Yes - Quit around 1979 Hx Alcohol Use: No - Activities of Daily Living Penitentiary[facility]Assisted Living (if applicable):: [facility] Family Medical History - Family History Mother Family History: Unknown Living Status: Unknown Hx Family;Other: COPD Physical Exam - Physical Exam General Appearance: Alert, Comfortable, No apparent distress Eye Exam: bilateral normal Ears, Nose, Throat: hearing grossly normal, normal ENT inspection, normal pharynx Neck: full range of motion, supple, normal inspection Respiratory: lungs clear, normal breath sounds, no respiratory distress, no accessory muscle use Cardiovascular/Chest: normal peripheral pulses, no edema, other - regular rate Peripheral Pulses: radial,right: 2+ - ., radial,left: 2+ Gastrointestinal/Abdominal: soft, other - mild epigastric discomfort palpation. 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 Initial and repeat hemoglobin and hematocrits are completely within normal limits and stable. No evidence of current active bleeding. The patient is on multiple blood thinners. I do want her to hold the aspirin, Plavix and Coumadin for 3 days before she resumes them. The patient is not a good candidate for endoscopy due to the blood thinner requirements as well as comorbidities etc. Vital signs have remained stable. The patient is going to be treated for gastritis with Carafate and dexilant. She can continue the ranitidine. She was given 1 dose of milk of magnesia for constipation noted on the imaging. It is possible that straining may have caused a small bleed. The patient needs to keep follow-up for her dialysis. She needs to return here for any evidence of any significant uncontrolled bleeding. She does understand that there is increased risk for clotting pathologies while going off of her blood thinners. ER warnings were given for any worsening. - Results/Orders Results/Orders: CT scan of abdomen and pelvis failed to show any acute pathology. She does have diverticuli but no diverticulitis. No evidence of any obstruction or perforation. She does have significant constipation. Laboratory Tests 09/19/18 09/19/18 09/19/18 11:10 11:10 11:10 WBC 4.6 L RBC 3.96 L Hgb 12.7 Hct 39.5 MCV 99.8 H MCH 32.2 H MCHC 32.3 L RDW 21.3 H Plt Count 95 L MPV 8.4 Absolute Neuts (auto) 2.10 Absolute Lymphs (auto) 1.90 Absolute Monos (auto) 0.50 Absolute Eos (auto) 0.10 Absolute Basos (auto) 0.00 Neutrophils % 44.9 Lymphocytes % 41.1 Monocytes % 10.0 H Eosinophils % 3.2 Basophils % 0.8 PT 26.1 H* INR 2.64 H PTT (SP) 33.3 H Sodium 135 Potassium 3.3 L Chloride 95 L Carbon Dioxide 26 Anion Gap 17.3 BUN 50 H Creatinine 6.77 H* BUN/Creatinine Ratio 7.4 L Random Glucose 86 Serum Osmolality 282.7 Calcium 8.6 Total Bilirubin 0.9 AST 18 ALT 11 Alkaline Phosphatase 42 Serum Total Protein 6.0 L Albumin 3.0 L Globulin 3.0 Albumin/Globulin Ratio 1.0 L Amylase 35 Lipase 26 Urine Color Urine Appearance Urine pH Ur Specific [place] Urine Protein Urine Glucose (UA) Urine Ketones Urine Blood Urine Nitrite Urine Bilirubin Urine Urobilinogen Ur Leukocyte Esterase Urine RBC Urine WBC Ur Epithelial Cells Urine Bacteria 09/19/18 09/19/18 11:49 14:10 WBC RBC Hgb 12.5 Hct 38.4 MCV MCH MCHC RDW Plt Count MPV Absolute Neuts (auto) Absolute Lymphs (auto) Absolute Monos (auto) Absolute Eos (auto) Absolute Basos (auto) Neutrophils % Lymphocytes % Monocytes % Eosinophils % Basophils % PT INR PTT (SP) Sodium Potassium Chloride Carbon Dioxide Anion Gap BUN Creatinine BUN/Creatinine Ratio Random Glucose Serum Osmolality Calcium Total Bilirubin AST ALT Alkaline Phosphatase Serum Total Protein Albumin Globulin Albumin/Globulin Ratio Amylase Lipase Urine Color Yellow Urine Appearance Sl cloudy Urine pH 8.5 H Ur Specific [place] 1.015 Urine Protein 100 H Urine Glucose (UA) 100 H Urine Ketones Negative Urine Blood Small H Urine Nitrite Negative Urine Bilirubin Negative Urine Urobilinogen 0.2 Ur Leukocyte Esterase Negative Urine RBC 5-10 H Urine WBC 0 Ur Epithelial Cells 10-20 Urine Bacteria Rare Departure - Departure Clinical Impression: Gastritis Qualifiers: Gastritis type: unspecified gastritis Chronicity: acute Gastritis bleeding: with bleeding Qualified Code(s): K29.01 - Acute gastritis with bleeding GI bleed Qualifiers: GI bleed type/associated pathology: unspecified gastrointestinal hemorrhage type Qualified Code(s): K92.2 - Gastrointestinal hemorrhage, unspecified Disposition: Discharge to Home or Self Care Condition: Fair Departure Forms: ED Discharge - Pt. Copy, Patient Portal Self Enrollment Instructions: Gastritis (DC) Diet: bland diet, diabetic diet Activity: increase activity as tolerated Referrals: Pedro Luis Fatima MD [Primary Care Provider] - 1-2 Weeks Prescriptions: Dexlansoprazole [Dexilant] 60 mg PO QPM #30 cap Sucralfate Tab [Carafate Tab] 1 gm PO QID #120 tab Home Medications: Ambulatory Orders Multiple Vitamins W/ Minerals [Renaplex-D] 1 tab PO BEDTIME 05/15/16 amLODIPine BESYLATE [Norvasc] 5 mg PO DAILY 05/15/16 Metoprolol Succinate [Metoprolol Succinate ER] 100 mg PO BID 05/28/18 Atorvastatin Calcium 40 mg PO BEDTIME 07/01/18 Insulin Glargine [Lantus Solostar] 13 unit SC BEDTIME 07/01/18 Albuterol Sulfate Nebs [Proventil Nebs] 2.5 mg INH PRN 09/19/18 Aspirin [Adult Aspirin Regimen] 81 mg PO DAILY 09/19/18 Clopidogrel Bisulfate [Plavix] 75 mg PO BEDTIME 09/19/18 Dexlansoprazole [Dexilant] 60 mg PO QPM #30 cap 09/19/18 Donepezil HCl [Aricept] 5 mg PO BEDTIME 09/19/18 Enoxaparin Sodium [Lovenox] 30 mg SUBCU DAILY 09/19/18 Escitalopram [Lexapro] 10 mg PO DAILY 09/19/18 Ibuprofen [Advil] 200 mg PO PRN 09/19/18 Ondansetron [Ondansetron Odt] 4 mg PO PRN 09/19/18 Ranitidine HCl [Ranitidine 75] 75 mg PO DAILY 09/19/18 Sucralfate Tab [Carafate Tab] 1 gm PO QID #120 tab 09/19/18 Warfarin Sodium 5 mg PO BID 09/19/18 diphenhydrAMINE HCL [Benadryl] 25 mg PO BEDTIME 09/19/18 Additional Instructions: the patient is a 78-year-old is into the emergency room secondary to a couple of bloody bowel movements last night. Initial and repeat hemoglobin and hematocrits are completely within normal limits and stable. No evidence of current active bleeding. The patient is on multiple blood thinners. I do want her to hold the aspirin, Plavix and Coumadin for 3 days before she resumes them. The patient is not a good candidate for endoscopy due to the blood thinner requirements as well as comorbidities etc. Vital signs have remained stable. The patient is going to be treated for gastritis with Carafate and dexilant. She can continue the ranitidine. She was given 1 dose of milk of magnesia for constipation noted on the imaging. It is possible that straining may have caused a small bleed. The patient needs to keep follow-up for her dialysis. She needs to return here for any evidence of any significant uncontrolled bleeding. She does understand that there is increased risk for clotting pathologies while going off of her blood thinners. ER warnings were given for any worsening. if she does have any continued bloody stools then I do want her to bring in a sample to help rule out Clostridium difficile. She has been unable to give a sample since her arrival, and was recently on an antibiotic. Keep follow-up with primary care doctor next week otherwise.
[2018-09-19] MEDS: MAGNESIUM HYDROXIDE 30 ML UD PO ONE (15:01)
[2018-09-19 16:00] VITALS: BP 138/65; TEMP 97.1
== END 2018-09-19 15:20 | disposition home or self-care (01) ==
LOC: ER 10:31
DX: K29.01 Acute gastritis with bleeding (principal); K92.1 Melena; I25.2 Old myocardial infarction; E89.0 Postprocedural hypothyroidism; I50.9 Heart failure, unspecified; E11.22 Type 2 diabetes mellitus with diabetic chronic kidney disease; N18.6 End stage renal disease; I13.2 Hypertensive heart and chronic kidney disease with heart failure and with stage 5 chronic kidney disease, or end stage renal disease; Z99.2 Dependence on renal dialysis; Z87.891 Personal history of nicotine dependence; Z86.73 Personal history of transient ischemic attack (TIA), and cerebral infarction without residual deficits; Z79.82 Long term (current) use of aspirin; Z79.01 Long term (current) use of anticoagulants; Z79.02 Long term (current) use of antithrombotics/antiplatelets; Z79.899 Other long term (current) drug therapy; Z88.8 Allergy status to other drugs, medicaments and biological substances

== ENCOUNTER 2018-12-24 13:17 | Emergency (ER) | payer MEDICARE ==
[2018-12-24 13:34] VITALS: TEMP 97.3
--- NOTE | 2018-12-24 14:27 | CT ---
EXAM DESCRIPTION: Head CT without contrast CLINICAL HISTORY: disorientation COMPARISON: Previous CT head April 09, 2008 TECHNIQUE: Noncontrast head CT was performed with routine protocol. FINDINGS: Normal gtz-white matter differentiation. Ventricles and sulci are prominent consistent with age-related cerebral volume loss. Low density areas in the white matter consistent with chronic microvascular ischemic disease. These findings have progressed since previous study. No high density hemorrhage, focal edema or shift of the midline. No sulcal effacement. Normal orbital contents. Basilar cisterns appear clear. Intact calvarium with no fracture or lytic lesion. Normal aeration of tympanic cavities and mastoid air cells. No fluid levels in the paranasal sinuses. Skull base appears intact. Symmetrical internal auditory canals. Coronal and sagittal reformatted images confirm the findings. IMPRESSION: No acute intracranial pathologic process. This exam was performed according to our departmental dose-optimization program, which includes automated exposure control, adjustment of the mA and/or kV according to patient size and/or use of iterative reconstruction technique. Total DLP equals 752.48 mGycm. Electronically signed by: Robbin Jaime MD 12/24/2018 2:24 PM CDT
--- NOTE | 2018-12-24 14:29 | RAD ---
EXAM DESCRIPTION: Chest,1 View CLINICAL HISTORY: 78 years Female, renal failure COMPARISON: Previous study July 01, 2018 TECHNIQUE: AP portable chest. FINDINGS: Heart size is large with centrally enlarged pulmonary arteries consistent with pulmonary hypertension. Fullness in the AP window is thought to be vascular rather than mass or adenopathy since this was present on the previous study. CT chest may be helpful. There may be mild vascular congestion has with volume overload or congestive failure. No consolidating infiltrate. No pulmonary mass or worrisome nodule. No pneumothorax or pleural effusion. Previous study showed a large left pleural effusion which has been drained. Bones are unremarkable. IMPRESSION: Large heart with enlarged central pulmonary arteries. Electronically signed by: Robbin Jaime MD 12/24/2018 2:26 PM CDT
[2018-12-24 15:30] VITALS: BP 191/77; O2SAT 100
--- NOTE | 2018-12-24 16:37 | ED.PDOC ---
History of Present Illness - General Chief Complaint: Neuro Symptoms/Deficits Stated Complaint: confusion Time Seen by Provider: 12/24/18 13:43 Source: patient, RN notes reviewed, Vital Signs reviewed, family Exam Limitations: other - dementia - History of Present Illness Initial Comments: Reportedly the patient refused to undergo dialysis & threatened to never have it done again. She also apparently threatened to jump from a vehicle. Last dialysis on Saturday. She agrees with most of the information from the shelter but says she is not trying to harm herself but that she just didn't feel well this morning & didn't want to go. The staff was provoking her she says. Her son reports this is not unusual behavior for her. Timing/Duration: momentarily Severity: moderate Improving Factors: nothing Worsening Factors: nothing Associated Symptoms: denies symptoms Allergies/Adverse Reactions: Allergies Metformin Adverse Reaction (Verified 11/19/18 13:29) Diarrhea Home Medications: Ambulatory Orders Metoprolol Succinate [Metoprolol Succinate ER] 50 mg PO BID 05/28/18 Atorvastatin Calcium 40 mg PO BEDTIME 07/01/18 Albuterol Sulfate Nebs [Proventil Nebs] 2.5 mg INH PRN 09/19/18 Aspirin [Adult Aspirin Regimen] 81 mg PO DAILY 09/19/18 Clopidogrel Bisulfate [Plavix] 75 mg PO BEDTIME 09/19/18 Donepezil HCl [Aricept] 10 mg PO BEDTIME 09/19/18 Escitalopram [Lexapro] 10 mg PO DAILY 09/19/18 Ibuprofen [Advil] 400 mg PO PRN 09/19/18 Ondansetron [Ondansetron Odt] 4 mg PO PRN 09/19/18 Ranitidine HCl [Ranitidine 75] 150 mg PO DAILY 09/19/18 Sucralfate Tab [Carafate Tab] 1 gm PO QID #120 tab 09/19/18 diphenhydrAMINE HCL [Benadryl] 25 mg PO BEDTIME PRN 09/19/18 Acetaminophen W/ Codeine [Tylenol W/ CODEINE #3] 1 ea PO PRN 12/24/18 Amlodipine Besylate 5 mg PO DAILY 12/24/18 Balsam Jil-[place] Oil [Venelex] 1 applic TOP BID 12/24/18 Bisacodyl [Dulcolax] 10 mg NE PRN 12/24/18 Cholecalciferol [Vitamin D3] 2,000 unit PO DAILY 12/24/18 Insulin Detemir [Levemir] 5 units SUBCU BEDTIME 12/24/18 Insulin Lispro (Human) [Humalog] 0 unit SC .SLIDING SCALE 12/24/18 Lactobacillus [Acidophilus Lactobacilli] 1 cap PO TID 12/24/18 Megestrol Acetate 200 mg PO DAILY 12/24/18 Pantoprazole Tablet [Protonix] 40 mg PO BEDTIME 12/24/18 Senna/Docusate Tab [Senokot-S] 1 ea PO BID PRN 12/24/18 Review of Systems - Review of Systems Constitutional: States: see HPI EENTM: States: no symptoms reported Respiratory: States: no symptoms reported Cardiology: States: no symptoms reported Gastrointestinal/Abdominal: States: diarrhea Genitourinary: States: no symptoms reported Musculoskeletal: States: no symptoms reported Skin: States: no symptoms reported Neurological: States: no symptoms reported Endocrine: States: no symptoms reported Past Medical History (General) - Patient Medical History Hx Seizures: No Hx Stroke: Yes Hx Dementia: No Hx Asthma: No Hx of COPD: No Hx Cardiac Disorders: Yes Hx Congestive Heart Failure: Yes Hx Pacemaker: No Hx Hypertension: Yes Hx Thyroid Disease: Yes - partial thyroidectomy Hx Diabetes: Yes Hx Gastroesophageal Reflux: No Hx Renal Disease: Yes - ESRD - dialysis MWF Hx Cancer: No Hx of HIV: No Hx Hepatitis C: No Hx MRSA: No Surgical History: noncontributory - Vaccination History Hx Tetanus, Diphtheria Vaccination: No Hx Influenza Vaccination: Yes Hx Pneumococcal Vaccination: Yes - Social History Hx Tobacco Use: Yes Hx Alcohol Use: Yes Hx Substance Use: No Hx Substance Use Treatment: No Hx Depression: No - Activities of Daily Living Custodial/Assisted Living (if applicable):: [facility] - Female History Patient : No Family Medical History - Family History Mother Family History: Unknown Living Status: Unknown Hx Family;Other: COPD Physical Exam - Physical Exam General Appearance: Alert, Comfortable, No apparent distress Eye Exam: bilateral normal Ears, Nose, Throat: hearing grossly normal, normal ENT inspection Neck: supple, normal inspection Respiratory: lungs clear, normal breath sounds, no respiratory distress Cardiovascular/Chest: regular rate, rhythm, no JVD Gastrointestinal/Abdominal: non tender, soft, no organomegaly Extremity: non-tender, normal inspection, normal capillary refill Neurologic: alert, normal mood/affect - A/O x 2 Skin Exam: normal color, warm/dry Progress - Progress Progress: 12/24/18 16:36 Have discussed findings with family. They have POA. Disposition pending a 2nd troponin. 12/25/18 03:21 Family requested she have a cardiology evaluation & possibly psych afterwards. - Results/Orders Results/Orders: Hgb 13 BUN 56 Cr 7.5 K 3.1 Tr 0.06 Tr 0.07 - EKG/XRAY/CT EKG: [place], Sinus - SB @ 57; nml axis, prolonged QT, nml QRS, nml ST segments; Twi XRAY: chest - no acute process CT Ordered: Yes - head - no acute process - Consult/PCP Time Called: 20:30 Consult/PCP: Dr. Trevino - agreed to accept transgfer Departure - Departure Clinical Impression: End stage renal disease on dialysis, Troponin level elevated Dementia Qualifiers: Dementia type: unspecified type Dementia behavioral disturbance: with behavioral disturbance Qualified Code(s): F03.91 - Unspecified dementia with behavioral disturbance Time of Disposition: 21:15 Disposition: Transfer to Hospital Condition: Fair Home Medications: Ambulatory Orders Metoprolol Succinate [Metoprolol Succinate ER] 50 mg PO BID 05/28/18 Atorvastatin Calcium 40 mg PO BEDTIME 07/01/18 Albuterol Sulfate Nebs [Proventil Nebs] 2.5 mg INH PRN 09/19/18 Aspirin [Adult Aspirin Regimen] 81 mg PO DAILY 09/19/18 Clopidogrel Bisulfate [Plavix] 75 mg PO BEDTIME 09/19/18 Donepezil HCl [Aricept] 10 mg PO BEDTIME 09/19/18 Escitalopram [Lexapro] 10 mg PO DAILY 09/19/18 Ibuprofen [Advil] 400 mg PO PRN 09/19/18 Ondansetron [Ondansetron Odt] 4 mg PO PRN 09/19/18 Ranitidine HCl [Ranitidine 75] 150 mg PO DAILY 09/19/18 Sucralfate Tab [Carafate Tab] 1 gm PO QID #120 tab 09/19/18 diphenhydrAMINE HCL [Benadryl] 25 mg PO BEDTIME PRN 09/19/18 Acetaminophen W/ Codeine [Tylenol W/ CODEINE #3] 1 ea PO PRN 12/24/18 Amlodipine Besylate 5 mg PO DAILY 12/24/18 Balsam Jil-[place] Oil [Venelex] 1 applic TOP BID 12/24/18 Bisacodyl [Dulcolax] 10 mg NE PRN 12/24/18 Cholecalciferol [Vitamin D3] 2,000 unit PO DAILY 12/24/18 Insulin Detemir [Levemir] 5 units SUBCU BEDTIME 12/24/18 Insulin Lispro (Human) [Humalog] 0 unit SC .SLIDING SCALE 12/24/18 Lactobacillus [Acidophilus Lactobacilli] 1 cap PO TID 12/24/18 Megestrol Acetate 200 mg PO DAILY 12/24/18 Pantoprazole Tablet [Protonix] 40 mg PO BEDTIME 12/24/18 Senna/Docusate Tab [Senokot-S] 1 ea PO BID PRN 12/24/18 Transfer to Outside Facility - Transfer Information Accepting Provider:: Dr. Trevino Accepting Facility: [facility] Reason for Transfer: required specialist not available
[2018-12-24] MEDS ORDERED: ACETAMINOPHEN 500 MG TAB PO ONE (17:25)
== END 2018-12-24 21:20 | disposition short-term general hospital (02) ==
LOC: ER 13:17
DX: F03.91 Unspecified dementia, unspecified severity, with behavioral disturbance (principal); N18.6 End stage renal disease; R79.89 Other specified abnormal findings of blood chemistry; R00.1 Bradycardia, unspecified; I51.9 Heart disease, unspecified; I50.9 Heart failure, unspecified; E11.22 Type 2 diabetes mellitus with diabetic chronic kidney disease; I13.2 Hypertensive heart and chronic kidney disease with heart failure and with stage 5 chronic kidney disease, or end stage renal disease; E89.0 Postprocedural hypothyroidism; Z99.2 Dependence on renal dialysis; Z87.891 Personal history of nicotine dependence; Z86.73 Personal history of transient ischemic attack (TIA), and cerebral infarction without residual deficits; Z79.899 Other long term (current) drug therapy; Z79.4 Long term (current) use of insulin; Z79.82 Long term (current) use of aspirin; Z88.8 Allergy status to other drugs, medicaments and biological substances
CPT/HCPCS: 36415; 36416; 70450; 71045; 80053; 82140; 82948; 84484; 85025; 85610; 85730; 93005; J2060

== ENCOUNTER → 2019-01-22 | Outpatient (CLI) | payer MEDICARE | LOC: GT 18:21 | PROVIDERS: ATTEND Family Medicine | DX: N39.0 Urinary tract infection, site not specified (principal) ==

== ENCOUNTER 2019-01-23 03:17 | Emergency (ER) | payer MEDICARE ==
[2019-01-23 03:27] VITALS: TEMP 98.6
--- NOTE | 2019-01-23 03:32 | ED.PDOC ---
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 She denies chest pain. She has had some increased swelling in the extremities. NH noted SBP in the 200s at one point. EMS reports oxygen saturation on arrival of 90% that yaquelin to 96 on 2L by NC. No other complaints. Timing/Duration: 1-3 hours Severity: mild Improving Factors: nothing Worsening Factors: nothing Associated Symptoms: denies symptoms Allergies/Adverse Reactions: Allergies Vancomycin Allergy (Verified 01/23/19 04:28) Metformin Adverse Reaction (Verified 11/19/18 13:29) Diarrhea Home Medications: Ambulatory Orders Albuterol Sulfate Nebs [Proventil Nebs] 2.5 mg INH PRN 09/19/18 Aspirin [Adult Aspirin Regimen] 81 mg PO DAILY 09/19/18 Escitalopram [Lexapro] 10 mg PO DAILY 09/19/18 Ranitidine HCl [Ranitidine 75] 150 mg PO DAILY 09/19/18 Sucralfate Tab [Carafate Tab] 1 gm PO QID #120 tab 09/19/18 Bisacodyl [Dulcolax] 10 mg AL PRN 12/24/18 Cholecalciferol [Vitamin D3] 2,000 unit PO DAILY 12/24/18 Insulin Detemir [Levemir] 5 units SUBCU BEDTIME 12/24/18 Insulin Lispro (Human) [Humalog] 0 unit SC .SLIDING SCALE 12/24/18 Megestrol Acetate 200 mg PO DAILY 12/24/18 Pantoprazole Tablet [Protonix] 40 mg PO BEDTIME 12/24/18 Senna/Docusate Tab [Senokot-S] 1 ea PO BID PRN 12/24/18 Review of Systems - Review of Systems Constitutional: States: no symptoms reported EENTM: States: no symptoms reported Respiratory: States: see HPI Cardiology: States: no symptoms reported Gastrointestinal/Abdominal: States: no symptoms reported Genitourinary: States: no symptoms reported Musculoskeletal: States: no symptoms reported Skin: States: no symptoms reported Neurological: States: no symptoms reported Endocrine: States: no symptoms reported Hematologic/Lymphatic: States: no symptoms reported Past Medical History (General) - Patient Medical History Hx Seizures: No Hx Stroke: Yes Hx Dementia: No Hx Asthma: No Hx of COPD: No Hx Cardiac Disorders: Yes Hx Congestive Heart Failure: Yes Hx Pacemaker: No Hx Hypertension: Yes Hx Thyroid Disease: Yes - partial thyroidectomy Hx Diabetes: Yes Hx Gastroesophageal Reflux: No Hx Renal Disease: Yes - ESRD - dialysis MWF Hx Cancer: No Hx of HIV: No Hx Hepatitis C: No Hx MRSA: No - Vaccination History Hx Tetanus, Diphtheria Vaccination: No Hx Influenza Vaccination: Yes Hx Pneumococcal Vaccination: Yes - Social History Hx Tobacco Use: Yes Hx Alcohol Use: Yes Hx Substance Use: No Hx Substance Use Treatment: No Hx Depression: No - Female History Patient : No Family Medical History - Family History Mother Family History: Unknown Living Status: Unknown Hx Family;Other: COPD Physical Exam - Physical Exam General Appearance: Alert Eye Exam: bilateral normal Ears, Nose, Throat: normal ENT inspection Neck: non-tender, full range of motion, supple Respiratory: other - distant breath sounds, no r/r/w/c Cardiovascular/Chest: irregularly irregular, other - ausculatation/pulse mismat ch. Pulses 2+ in all extremities. Gastrointestinal/Abdominal: normal bowel sounds, non tender, soft Extremity: pedal edema - trace bipedal edema, mild trace edema in RUE. Multiple venous aberrations on the right forearm. Neurologic: no motor/sensory deficits, alert, normal mood/affect, oriented x 3 Skin Exam: normal color Lymphatic: no adenopathy Progress - Progress Progress: 01/23/19 05:31 Laboratory Tests 01/23/19 01/23/19 01/23/19 03:58 03:58 03:58 WBC 7.1 RBC 3.37 L Hgb 9.4 L Hct 28.8 L MCV 85.3 MCH 27.9 MCHC 32.7 L RDW 19.3 H Plt Count 182 MPV 8.6 Absolute Neuts (auto) 5.20 Absolute Lymphs (auto) 0.80 L Absolute Monos (auto) 0.60 Absolute Eos (auto) 0.40 Absolute Basos (auto) 0.00 Neutrophils % 73.8 Lymphocytes % 10.8 L Monocytes % 9.1 H Eosinophils % 5.8 H Basophils % 0.5 PT 13.2 H INR 1.32 H PTT (SP) Sodium 133 L Potassium 3.5 L Chloride 90 L Carbon Dioxide 25 Anion Gap 21.5 H BUN 66 H Creatinine 8.53 H* BUN/Creatinine Ratio 7.7 L Random Glucose 102 Serum Osmolality 285.6 Calcium 10.1 Magnesium Total Bilirubin 0.9 AST 12 ALT < 8 L Alkaline Phosphatase 54 Creatine Kinase CK-MB (CK-2) CK-MB (CK-2) % Troponin I B-Natriuretic Peptide Serum Total Protein 6.7 Albumin 3.0 L Globulin 3.7 H Albumin/Globulin Ratio 0.8 L 01/23/19 01/23/19 03:58 03:58 WBC RBC Hgb Hct MCV MCH MCHC RDW Plt Count MPV Absolute Neuts (auto) Absolute Lymphs (auto) Absolute Monos (auto) Absolute Eos (auto) Absolute Basos (auto) Neutrophils % Lymphocytes % Monocytes % Eosinophils % Basophils % PT INR PTT (SP) 39.0 H Sodium Potassium Chloride Carbon Dioxide Anion Gap BUN Creatinine BUN/Creatinine Ratio Random Glucose Serum Osmolality Calcium Magnesium 2.2 Total Bilirubin AST ALT Alkaline Phosphatase Creatine Kinase 43 CK-MB (CK-2) 3.0 CK-MB (CK-2) % Not Reportable Troponin I 0.10 H* B-Natriuretic Peptide > 5000.0 H* Serum Total Protein Albumin Globulin Albumin/Globulin Ratio BNP>5000. CXR showed congestion. Patient needs emergent dialysis. She has skipped a day already. Transferred to [facility] to Dr. Maged Lobo. Departure - Departure Clinical Impression: Shortness of breath, CHF (congestive heart failure), End stage chronic kidney disease Disposition: Transfer to Hospital Condition: Fair Departure Forms: ED Discharge - Pt. Copy, Patient Portal Self Enrollment Referrals: Pedro Luis Fatima MD [Primary Care Provider] - 1-2 Weeks Home Medications: Ambulatory Orders Albuterol Sulfate Nebs [Proventil Nebs] 2.5 mg INH PRN 09/19/18 Aspirin [Adult Aspirin Regimen] 81 mg PO DAILY 09/19/18 Escitalopram [Lexapro] 10 mg PO DAILY 09/19/18 Ranitidine HCl [Ranitidine 75] 150 mg PO DAILY 09/19/18 Sucralfate Tab [Carafate Tab] 1 gm PO QID #120 tab 09/19/18 Bisacodyl [Dulcolax] 10 mg AL PRN 12/24/18 Cholecalciferol [Vitamin D3] 2,000 unit PO DAILY 12/24/18 Insulin Detemir [Levemir] 5 units SUBCU BEDTIME 12/24/18 Insulin Lispro (Human) [Humalog] 0 unit SC .SLIDING SCALE 12/24/18 Megestrol Acetate 200 mg PO DAILY 12/24/18 Pantoprazole Tablet [Protonix] 40 mg PO BEDTIME 12/24/18 Senna/Docusate Tab [Senokot-S] 1 ea PO BID PRN 12/24/18 Critical Care Note - Critical Care Note Total Time (mins): 90
--- NOTE | 2019-01-23 04:07 | RAD ---
EXAM: XR Chest, 1 View CLINICAL HISTORY: The patient is 78 years old and is Female; dyspnea TECHNIQUE: Frontal view of the chest. COMPARISON: Chest radiograph December 24, 2018. FINDINGS: LUNGS: Mild diffuse interstitial opacities are present superimposed on chronic lung changes. PLEURAL SPACE: Unremarkable. No pneumothorax. HEART: The cardiac silhouette is enlarged. MEDIASTINUM: Unremarkable. BONES/JOINTS: Unremarkable. IMPRESSION: Cardiomegaly with findings suggestive of mild vascular congestion. Electronically signed by: Nguyen Hood MD 01/23/2019 4:05 AM CDT
[2019-01-23 06:18] VITALS: O2SAT 97
[2019-01-23 06:45] VITALS: BP 182/84
== END 2019-01-23 06:35 | disposition short-term general hospital (02) ==
LOC: ER 03:17
DX: R06.02 Shortness of breath (principal); I50.9 Heart failure, unspecified; N18.6 End stage renal disease; Z87.891 Personal history of nicotine dependence; Z86.73 Personal history of transient ischemic attack (TIA), and cerebral infarction without residual deficits; I51.9 Heart disease, unspecified; I48.2 Chronic atrial fibrillation; E11.22 Type 2 diabetes mellitus with diabetic chronic kidney disease; Z99.2 Dependence on renal dialysis; I13.2 Hypertensive heart and chronic kidney disease with heart failure and with stage 5 chronic kidney disease, or end stage renal disease; Z79.4 Long term (current) use of insulin; Z79.899 Other long term (current) drug therapy; Z79.82 Long term (current) use of aspirin; Z88.1 Allergy status to other antibiotic agents; Z88.8 Allergy status to other drugs, medicaments and biological substances; Z79.01 Long term (current) use of anticoagulants

== ENCOUNTER 2019-02-05 16:41 | Emergency (ER) | payer MEDICARE ==
[2019-02-05] MEDS ORDERED: SODIUM CHLORIDE 0.9% 250ML 250 ML IVS ONE (17:48)
--- NOTE | 2019-02-05 18:24 | ED.PDOC ---
History of Present Illness - General Chief Complaint: Neuro Symptoms/Deficits Stated Complaint: Hypertensive and AMS Time Seen by Provider: 02/05/19 17:37 Source: patient Exam Limitations: no limitations - History of Present Illness Initial Comments: Gina Vanessa 78 y/o female with history of ESRD-HD sent by [facility] to ER with elevated BP and confusion today;No LOC .Had been here in the past for sme problem had Head CT done last month when she came for confusion-no acute findings noted she was sent to for NSTEMI.Has history of dementia and nurse called up [facility] stated this is her baseline. Timing/Duration: 4-6 hours Severity: moderate Improving Factors: nothing Worsening Factors: nothing Allergies/Adverse Reactions: Allergies Vancomycin Allergy (Verified 02/05/19 17:12) Metformin Adverse Reaction (Verified 02/05/19 17:12) Diarrhea Home Medications: Ambulatory Orders Albuterol Sulfate Nebs [Proventil Nebs] 2.5 mg INH PRN 09/19/18 Aspirin [Adult Aspirin Regimen] 81 mg PO DAILY 09/19/18 Escitalopram [Lexapro] 10 mg PO DAILY 09/19/18 Ranitidine HCl [Ranitidine 75] 150 mg PO DAILY 09/19/18 Sucralfate Tab [Carafate Tab] 1 gm PO QID #120 tab 09/19/18 Bisacodyl [Dulcolax] 10 mg CO PRN 12/24/18 Cholecalciferol [Vitamin D3] 2,000 unit PO DAILY 12/24/18 Insulin Detemir [Levemir] 5 units SUBCU BEDTIME 12/24/18 Insulin Lispro [Humalog] 0 unit SC .SLIDING SCALE 12/24/18 Megestrol Acetate 200 mg PO DAILY 12/24/18 Pantoprazole Tablet [Protonix] 40 mg PO BEDTIME 12/24/18 Senna/Docusate Tab [Senokot-S] 1 ea PO BID PRN 12/24/18 Review of Systems - Review of Systems Neurological: States: emotional problems Unable to Obtain Due To: condition Past Medical History (General) - Patient Medical History Hx Seizures: No Hx Stroke: Yes Hx Dementia: No Hx Asthma: No Hx of COPD: No Hx Cardiac Disorders: Yes Hx Congestive Heart Failure: Yes Hx Pacemaker: No Hx Hypertension: Yes Hx Thyroid Disease: Yes - partial thyroidectomy Hx Diabetes: Yes Hx Gastroesophageal Reflux: No Hx Renal Disease: Yes - ESRD - dialysis MWF Hx Cancer: No Hx of HIV: No Hx Hepatitis C: No Hx MRSA: No Surgical History: other - Vaccination History Hx Tetanus, Diphtheria Vaccination: No Hx Influenza Vaccination: Yes Hx Pneumococcal Vaccination: Yes - Social History Hx Tobacco Use: Yes Hx Chewing Tobacco Use: No Hx Alcohol Use: Yes Hx Substance Use: No Hx Substance Use Treatment: No Hx Depression: No Hx Physical Abuse: No Hx Emotional Abuse: No Hx Suspected Abuse: No - Activities of Daily Living Retirement/Assisted Living (if applicable):: [facility] - Female History Patient is a Female of Child Bearing Age (10 -59 yrs old): No Patient : No Family Medical History - Family History Mother Family History: Unknown Living Status: Unknown Hx Family;Other: COPD Physical Exam - Physical Exam General Appearance: Alert, No apparent distress Eye Exam: bilateral normal Ears, Nose, Throat: hearing grossly normal, normal ENT inspection Neck: supple, normal inspection Respiratory: chest non-tender, lungs clear, normal breath sounds Cardiovascular/Chest: normal peripheral pulses, regular rate, rhythm, no murmur Peripheral Pulses: radial,right: 2+, radial,left: 2+ Gastrointestinal/Abdominal: non tender, soft Back Exam: normal inspection, no CVA tenderness, no vertebral tenderness Extremity: no pedal edema, no calf tenderness, other - patent a-v shunt for HD Neurologic: alert Skin Exam: normal color, warm/dry Progress - Progress Progress: 02/05/19 21:57 Vital Signs - 8 hr 02/05/19 02/05/19 02/05/19 16:44 17:05 18:00 Temperature 98.1 F Pulse Rate [R 84 84 77 finger] Respiratory 18 18 20 Rate Blood Pressure 197/91 203/92 [L brachial] O2 Sat by Pulse 93 L 94 L Oximetry 02/05/19 19:00 Temperature Pulse Rate [R 82 finger] Respiratory 20 Rate Blood Pressure 203/99 [L brachial] O2 Sat by Pulse 91 L Oximetry 02/05/19 22:19 02/05/19 17:30 EKG STAT 02/05/19 17:48 IV Care:Saline Lock per Protoc QSHIFT URINALYSIS Stat Laboratory Results - last 24 hr 02/05/19 02/05/19 18:14 20:30 WBC 6.6 RBC 3.62 L Hgb 10.0 L Hct 31.2 L MCV 86.3 MCH 27.6 MCHC 32.0 L RDW 19.8 H Plt Count 210 MPV 7.6 Absolute Neuts (auto) 4.50 Absolute Lymphs (auto) 1.00 Absolute Monos (auto) 0.70 Absolute Eos (auto) 0.20 Absolute Basos (auto) 0.10 Neutrophils % 68.7 Lymphocytes % 15.7 L Monocytes % 11.3 H Eosinophils % 3.4 Basophils % 0.9 PT 12.2 H INR 1.22 H PTT (SP) 32.5 H Sodium 138 Potassium 3.0 L Chloride 92 L Carbon Dioxide 30 Anion Gap 19.0 H BUN 32 H Creatinine 4.89 H BUN/Creatinine Ratio 6.5 L Random Glucose 115 H Serum Osmolality 283.5 Calcium 9.9 Magnesium 2.0 Total Bilirubin 0.9 Direct Bilirubin 0.2 Indirect Bilirubin 0.7 AST 11 ALT < 8 L Alkaline Phosphatase 65 Creatine Kinase 21 L CK-MB (CK-2) 1.7 CK-MB (CK-2) % Not Reportable Troponin I 0.07 H* 0.07 H* Serum Total Protein 6.7 Albumin 3.1 L Vital Signs - 8 hr 02/05/19 02/05/19 02/05/19 16:44 17:05 18:00 Temperature 98.1 F Pulse Rate [R 84 84 77 finger] Respiratory 18 18 20 Rate Blood Pressure 197/91 203/92 [L brachial] O2 Sat by Pulse 93 L 94 L Oximetry 02/05/19 02/05/19 19:00 20:00 Temperature 98.3 F Pulse Rate [R 82 83 finger] Respiratory 20 18 Rate Blood Pressure 203/99 184/84 [L brachial] O2 Sat by Pulse 91 L 99 Oximetry - Results/Orders Results/Orders: Vital Signs - 24 hr 02/05/19 02/05/19 02/05/19 16:44 17:05 18:00 Temperature 98.1 F Pulse Rate [R 84 84 77 finger] Respiratory 18 18 20 Rate Blood Pressure 197/91 203/92 [L brachial] O2 Sat by Pulse 93 L 94 L Oximetry 02/05/19 19:00 Temperature Pulse Rate [R 82 finger] Respiratory 20 Rate Blood Pressure 203/99 [L brachial] O2 Sat by Pulse 91 L Oximetry Cardiac enzymes no further elevation as from previous visit in 24 December 2018 Troponin-0.07 or changes as well as her EKG no st changes suggestive of OH and blood pressure trending down Laboratory Tests 02/05/19 02/05/19 18:14 20:30 WBC 6.6 RBC 3.62 L Hgb 10.0 L Hct 31.2 L MCV 86.3 MCH 27.6 MCHC 32.0 L RDW 19.8 H Plt Count 210 MPV 7.6 Absolute Neuts (auto) 4.50 Absolute Lymphs (auto) 1.00 Absolute Monos (auto) 0.70 Absolute Eos (auto) 0.20 Absolute Basos (auto) 0.10 Neutrophils % 68.7 Lymphocytes % 15.7 L Monocytes % 11.3 H Eosinophils % 3.4 Basophils % 0.9 PT 12.2 H INR 1.22 H PTT (SP) 32.5 H Sodium 138 Potassium 3.0 L Chloride 92 L Carbon Dioxide 30 Anion Gap 19.0 H BUN 32 H Creatinine 4.89 H BUN/Creatinine Ratio 6.5 L Random Glucose 115 H Serum Osmolality 283.5 Calcium 9.9 Magnesium 2.0 Total Bilirubin 0.9 Direct Bilirubin 0.2 Indirect Bilirubin 0.7 AST 11 ALT < 8 L Alkaline Phosphatase 65 Creatine Kinase 21 L CK-MB (CK-2) 1.7 CK-MB (CK-2) % Not Reportable Troponin I 0.07 H* 0.07 H* Serum Total Protein 6.7 Albumin 3.1 L - EKG/XRAY/CT EKG: Sinus, nonspecific ST T wave Chg, Unchanged from - 24 December 2018 Comments: HR-87 Departure - Departure Clinical Impression: Confusion, ESRD (end stage renal disease) on dialysis Renal disease, hypertensive, with chronic kidney disease Qualifiers: Hypertensive chronic kidney disease stage: stage 5 chronic kidney disease or end stage renal disease Qualified Code(s): I12.0 - Hypertensive chronic kidney disease with stage 5 chronic kidney disease or end stage renal disease Time of Disposition: 22:20 Disposition: Discharge to Home or Self Care Condition: Fair Departure Forms: ED Discharge - Pt. Copy, Patient Portal Self Enrollment Referrals: Pedro Luis Fatima MD [Primary Care Provider] - 1-2 Weeks Home Medications: Ambulatory Orders Albuterol Sulfate Nebs [Proventil Nebs] 2.5 mg INH PRN 09/19/18 Aspirin [Adult Aspirin Regimen] 81 mg PO DAILY 09/19/18 Escitalopram [Lexapro] 10 mg PO DAILY 09/19/18 Ranitidine HCl [Ranitidine 75] 150 mg PO DAILY 09/19/18 Sucralfate Tab [Carafate Tab] 1 gm PO QID #120 tab 09/19/18 Bisacodyl [Dulcolax] 10 mg CO PRN 12/24/18 Cholecalciferol [Vitamin D3] 2,000 unit PO DAILY 12/24/18 Insulin Detemir [Levemir] 5 units SUBCU BEDTIME 12/24/18 Insulin Lispro [Humalog] 0 unit SC .SLIDING SCALE 12/24/18 Megestrol Acetate 200 mg PO DAILY 12/24/18 Pantoprazole Tablet [Protonix] 40 mg PO BEDTIME 12/24/18 Senna/Docusate Tab [Senokot-S] 1 ea PO BID PRN 12/24/18 Additional Instructions: continue with dialysis as scheduled and all home medications;return to emergency room as needed
[2019-02-05] MEDS ORDERED: hydrALAZINE HCl 20 MG/ML VIAL IV ONE (18:40)
--- NOTE | 2019-02-05 18:42 | RAD ---
EXAM: Chest,1 View CLINICAL INDICATION: 78-year-old female with altered mental status. TECHNIQUE: Single view, AP portable chest was obtained. COMPARISON: 01/23/2019. FINDINGS: Enlarged stable cardiac and mediastinal silhouette. Cardiomegaly with tortuous thoracic aorta. Interstitial and central pulmonary vascular prominence raising the concern for pulmonary vascular congestion. Lungs are clear without focal opacity, pneumothorax or pleural effusions. The visualized bones are within normal limits. IMPRESSION: 1. Stable cardiomegaly. 2. Interstitial and central pulmonary vascular prominence raising the concern for pulmonary vascular congestion. Electronically signed by: Nunu Calles MD 02/05/2019 6:41 PM CDT
[2019-02-05 22:19] VITALS: TEMP 98.3
[2019-02-05 23:23] VITALS: BP 169/97; O2SAT 99
== END 2019-02-05 22:35 ==
LOC: ER 16:41
DX: R41.0 Disorientation, unspecified (principal); N18.6 End stage renal disease; I13.2 Hypertensive heart and chronic kidney disease with heart failure and with stage 5 chronic kidney disease, or end stage renal disease; I50.9 Heart failure, unspecified; E11.22 Type 2 diabetes mellitus with diabetic chronic kidney disease; E89.0 Postprocedural hypothyroidism; Z99.2 Dependence on renal dialysis; Z86.73 Personal history of transient ischemic attack (TIA), and cerebral infarction without residual deficits; Z79.4 Long term (current) use of insulin; Z79.899 Other long term (current) drug therapy; Z79.82 Long term (current) use of aspirin; Z88.1 Allergy status to other antibiotic agents; Z88.8 Allergy status to other drugs, medicaments and biological substances
CPT/HCPCS: 36415; 71045; 80048; 80076; 82550; 82553; 84484; 85025; 85610; 85730; 93005; J0360; J7050

== ENCOUNTER 2019-02-09 03:33 | Emergency (ER) | payer MEDICARE ==
[2019-02-09] MEDS ORDERED: cloNIDine HCL 0.1 MG TAB PO ONE (04:09)
--- NOTE | 2019-02-09 04:56 | CT ---
EXAM: CT Head Without Intravenous Contrast CLINICAL HISTORY: The patient is 78 years old and is Female; slid off bed, elevated blood pressure TECHNIQUE: Axial computed tomography images of the head/brain without intravenous contrast. Sagittal and coronal reformatted images were created and reviewed. This CT exam was performed using one or more of the following dose reduction techniques: automated exposure control, adjustment of the mA and/or kV according to patient size, and/or use of iterative reconstruction technique. COMPARISON: CT head December 24, 2018. FINDINGS: BRAIN: Diffuse cerebral atrophy is noted. There are nonspecific periventricular white matter changes, which are likely related to chronic small vessel disease. The gtz-white differentiation is maintained. There are no extra-axial fluid collections or acute hemorrhage. There is diffuse prominence of the ventricles, which is likely related to central atrophy. VENTRICLES: Unremarkable. No ventriculomegaly. BONES/JOINTS: No acute fracture. SOFT TISSUES: Unremarkable. SINUSES: Unremarkable as visualized. No acute sinusitis. MASTOID AIR CELLS: Unremarkable as visualized. No mastoid effusion. IMPRESSION: 1. No acute intracranial findings visualized. 2. Nonspecific periventricular white matter changes, likely related to chronic small vessel disease. 3. Diffuse cerebral atrophy. Electronically signed by: Nguyen Hood MD 02/09/2019 4:55 AM CDT
--- NOTE | 2019-02-09 05:11 | CT ---
EXAM: CT Lumbar Spine Without Intravenous Contrast CLINICAL HISTORY: The patient is 78 years old and is Female; slid from bed TECHNIQUE: Axial computed tomography images of the lumbar spine without intravenous contrast. Sagittal and coronal reformatted images were created and reviewed. This CT exam was performed using one or more of the following dose reduction techniques: automated exposure control, adjustment of the mA and/or kV according to patient size, and/or use of iterative reconstruction technique. COMPARISON: CT abdomen pelvis from 09/19/2018 FINDINGS: VERTEBRAE: No acute fracture or subluxation. Large Schmorl's node again noted in the inferior endplate of L4-5. DISCS/SPINAL CANAL/NEURAL FORAMINA: Intervertebral disc heights are well-maintained. There is mild to moderate spinal canal narrowing at L4-5 secondary to a broad-based posterior disc bulge and facet hypertrophy. There is also moderate bilateral neural foraminal narrowing at this level. SOFT TISSUES: No acute findings visualized in the paravertebral soft tissues. VASCULATURE: Atherosclerotic calcifications. LUNGS: Mild basilar densities suggesting atelectasis. There is also mild interstitial thickening in the lung bases. PLEURAL SPACE: Small right pleural effusion. KIDNEYS AND URETERS: Vascular calcifications and possible stones in the bilateral kidneys. Small left renal cyst. Bilateral perinephric stranding which is likely chronic. No hydronephrosis. IMPRESSION: 1. No acute findings visualized in the lumbar spine. 2. Small right pleural effusion. Electronically signed by: Sharona Maxwell MD 02/09/2019 5:10 AM CDT
--- NOTE | 2019-02-09 05:30 | ED.PDOC ---
History of Present Illness - General Chief Complaint: Blood Pressure Problem Stated Complaint: HTN, unwitnessed fall Time Seen by Provider: 02/09/19 05:22 Source: RN notes reviewed, Vital Signs reviewed Exam Limitations: clinical condition, other - dementia - History of Present Illness Initial Comments: 78 yo female intermediate patient with dementia presents with HTN. Staff found her sitting on the floor of her bedroom. No complaints but the staff thought she might have a scratch on her back. Timing/Duration: unsure Severity: mild Improving Factors: nothing Worsening Factors: nothing Associated Symptoms: denies symptoms Allergies/Adverse Reactions: Allergies Vancomycin Allergy (Verified 02/05/19 17:12) Metformin Adverse Reaction (Verified 02/05/19 17:12) Diarrhea Home Medications: Ambulatory Orders Albuterol Sulfate Nebs [Proventil Nebs] 2.5 mg INH PRN 09/19/18 Escitalopram [Lexapro] 10 mg PO DAILY 09/19/18 Ranitidine HCl [Ranitidine 75] 150 mg PO DAILY 09/19/18 Sucralfate Tab [Carafate Tab] 1 gm PO QID #120 tab 09/19/18 Insulin Detemir [Levemir] 5 units SUBCU BEDTIME 12/24/18 Insulin Lispro [Humalog] 0 unit SC .SLIDING SCALE 12/24/18 Megestrol Acetate 200 mg PO DAILY 12/24/18 Pantoprazole Tablet [Protonix] 40 mg PO BEDTIME 12/24/18 Senna/Docusate Tab [Senokot-S] 1 ea PO BID PRN 12/24/18 Eliquis 2.5 mg PO BID 02/09/19 Memantine HCl [Namenda] 10 mg PO 02/09/19 busPIRone HCL [Buspar] 5 mg PO 02/09/19 Review of Systems - Review of Systems Constitutional: States: no symptoms reported - no recent illnesses reported. She has dialysis MWF. Respiratory: States: no symptoms reported Cardiology: States: no symptoms reported Gastrointestinal/Abdominal: States: no symptoms reported Musculoskeletal: States: no symptoms reported Neurological: States: no symptoms reported Past Medical History (General) - Patient Medical History Hx Seizures: No Hx Stroke: Yes Hx Dementia: Yes Hx Asthma: No Hx of COPD: No Hx Cardiac Disorders: Yes Hx Congestive Heart Failure: Yes Hx Pacemaker: No Hx Hypertension: Yes Hx Thyroid Disease: Yes - partial thyroidectomy Hx Diabetes: Yes Hx Gastroesophageal Reflux: Yes Hx Renal Disease: Yes - ESRD - dialysis MWF Hx Cancer: No Hx of HIV: No Hx Hepatitis C: No Hx MRSA: No - Vaccination History Hx Tetanus, Diphtheria Vaccination: No Hx Influenza Vaccination: Yes Hx Pneumococcal Vaccination: Yes Immunizations Up to Date: Yes - Social History Hx Tobacco Use: Yes Hx Chewing Tobacco Use: No Hx Alcohol Use: Yes Hx Substance Use: No Hx Substance Use Treatment: No Hx Depression: No Hx Physical Abuse: No Hx Emotional Abuse: No Hx Suspected Abuse: No - Activities of Daily Living Care Home/Assisted Living (if applicable):: [facility] - Female History Patient : No Family Medical History - Family History Mother Family History: Unknown Living Status: Unknown Hx Family;Other: COPD Physical Exam - Physical Exam General Appearance: Alert, Comfortable Eye Exam: bilateral normal Ears, Nose, Throat: hearing grossly normal Neck: non-tender, full range of motion, supple, normal inspection Respiratory: normal breath sounds, no respiratory distress Cardiovascular/Chest: regular rate, rhythm Gastrointestinal/Abdominal: non tender, soft, no organomegaly, no pulsatile mass Back Exam: normal inspection, no vertebral tenderness Extremity: non-tender, normal inspection, no pedal edema, no calf tenderness, normal capillary refill, pelvis stable, other - no hip pain or leg shortening Neurologic: neonatal social worker II-XII nml as tested, alert, disoriented x 3, other - moves all extremities Skin Exam: normal color, warm/dry Progress - Progress Progress: 02/09/19 05:34 No injury found but reportedly she had a scratch on her lower back which I do not see. No head injury, spine or neck pain. No change from her baseline mental status. She has been sleeping since her imaging & in no apparent discomfort. Since she is anticoagulated her head was imaged as a precaution. The intermediate staff reported that she appeared to have slid out of bed & onto the floor. Reportedly she uses a wheel chair at her baseline. Currently I find no injuries & her BP has trended down with clonidine. Perhaps she slid out of bed or sat down trying to get up or fell. Unable to determine at this point but she appears well & comfortable. 02/09/19 05:38 02/09/19 05:41 - EKG/XRAY/CT XRAY: LS spine: no acute process CT: head CT: no acute process CT Ordered: Yes Departure - Departure Clinical Impression: End stage renal disease on dialysis Hypertension Qualifiers: Hypertension type: essential hypertension Qualified Code(s): I10 - Essential (primary) hypertension Time of Disposition: 05:41 - discharged to the sending intermediate Disposition: Discharge to SNF Condition: Good Departure Forms: ED Discharge - Pt. Copy, Patient Portal Self Enrollment Referrals: Pedro Luis Fatima MD [Primary Care Provider] - 02/10/19 Home Medications: Ambulatory Orders Albuterol Sulfate Nebs [Proventil Nebs] 2.5 mg INH PRN 09/19/18 Escitalopram [Lexapro] 10 mg PO DAILY 09/19/18 Ranitidine HCl [Ranitidine 75] 150 mg PO DAILY 09/19/18 Sucralfate Tab [Carafate Tab] 1 gm PO QID #120 tab 09/19/18 Insulin Detemir [Levemir] 5 units SUBCU BEDTIME 12/24/18 Insulin Lispro [Humalog] 0 unit SC .SLIDING SCALE 12/24/18 Megestrol Acetate 200 mg PO DAILY 12/24/18 Pantoprazole Tablet [Protonix] 40 mg PO BEDTIME 12/24/18 Senna/Docusate Tab [Senokot-S] 1 ea PO BID PRN 12/24/18 Eliquis 2.5 mg PO BID 02/09/19 Memantine HCl [Namenda] 10 mg PO 02/09/19 busPIRone HCL [Buspar] 5 mg PO 02/09/19
[2019-02-09 06:05] VITALS: TEMP 98
[2019-02-09 06:42] VITALS: BP 199/89; O2SAT 95
== END 2019-02-09 06:41 ==
LOC: ER 03:33
DX: N18.6 End stage renal disease (principal); I13.2 Hypertensive heart and chronic kidney disease with heart failure and with stage 5 chronic kidney disease, or end stage renal disease; E11.22 Type 2 diabetes mellitus with diabetic chronic kidney disease; I50.9 Heart failure, unspecified; F03.90 Unspecified dementia, unspecified severity, without behavioral disturbance, psychotic disturbance, mood disturbance, and anxiety; G31.9 Degenerative disease of nervous system, unspecified; E07.9 Disorder of thyroid, unspecified; K21.9 Gastro-esophageal reflux disease without esophagitis; Z99.2 Dependence on renal dialysis; Z79.01 Long term (current) use of anticoagulants; Z79.899 Other long term (current) drug therapy; Z79.4 Long term (current) use of insulin; Z88.1 Allergy status to other antibiotic agents; Z88.8 Allergy status to other drugs, medicaments and biological substances; Z87.891 Personal history of nicotine dependence